=== PATIENT | female | born 2000 | race Caucasian/White ===

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

== ENCOUNTER 2023-06-07 22:27 | Observation (INO) ==
[2023-06-07] MEDS ORDERED: ONDANSETRON INJ 2 MG/ML 2 ML VIAL IV STA (22:39)
[2023-06-07] MEDS ORDERED: KETOROLAC 30 MG/ML VIAL IV STA (22:39)
[2023-06-07] MEDS ORDERED: SODIUM CHLORIDE 0.9% 1000ML 1,000 ML IV STA (22:39)
[2023-06-07 23:09] LABS: Appearance Urine Clear (Clear); Bacteria Urine Automated Negative (Negative); Bilirubin Urine Negative (Negative); Blood Urine Negative (Negative); Color Urine Yellow; Epithelial Cell Urine Auto >30 /lpf (0-5); Glucose Urine UA Negative (Negative); Ketones Urine Negative (Negative); Leukocyte Esterase Urine Trace (Negative); Nitrite Urine Negative (Negative); Protein Urine Negative (Negative); RBC Urine Automated 0-4 /hpf (0-4); Specific Gravity Urine 1.026 (1.000-1.030); Urobilinogen Urine Negative (Negative); pH Urine 5.5 (4.5-7.5)
[2023-06-07 23:13] LABS: Basophils # (auto) 0.04 K/uL (0-0.2); Basophils % (auto) 0.4 %; Eosinophils # (auto) 0.15 K/uL (0-0.50); Eosinophils % (auto) 1.4 %; Hematocrit (blood only) 38.3 % (37.0-47.0); Hemoglobin 13.1 g/dl (12.0-16.0); Immature Granulocytes # (auto) 0.03 K/uL (0.01-0.20); Immature Granulocytes % (auto) 0.3 %; Lymphocytes # (auto) 2.67 K/uL (1.2-3.4); Lymphocytes % (auto) 25.1 %; Mean Corpuscular Hemoglobin 30.3 pg (25.0-34.0); Mean Corpuscular Hgb Conc 34.2 g/dL (32.0-36.0); Mean Corpuscular Volume 88.5 fL (80.0-100.0); Mean Platelet Volume 9.8 fL (9.4-12.4); Monocytes # (auto) 0.65 K/uL (0.11-0.59); Monocytes % (auto) 6.1 %; Neutrophils # (auto) 7.11 K/uL (1.40-6.50); Neutrophils % (auto) 66.7 %; Platelet Count 223 K/uL (130-400); RDW Coefficient of Variation 11.8 % (11.5-14.5); RDW Standard Deviation 38.2 fL (36.4-46.3); Red Blood Count 4.33 M/uL (4.20-5.40); White Blood Count 10.65 K/ul (4.8-10.8)
[2023-06-07 23:33] LABS: Albumin Globulin Ratio 1.8 (0.9-2); Albumin Level 4.2 gm/dl (3.4-5.0); BUN Creatinine Ratio 13.8 (10-20); Bilirubin,Total 0.2 mg/dl (0.2-1.0); Calcium 8.9 mg/dl (8.6-10.3); Creatinine Clr Calc Pharmacy 114.5 ml/min; Est GFR (African American) 122.2 ml/min; Est GFR (Non-African American) 105.4 ml/min; Globulin 2.3 gm/dl (2.5-4.0); Potassium 3.6 mmol/L (3.5-5.1); Pregnancy Test, Serum Negative (Negative); Total Protein 6.5 gm/dl (6.0-8.3)
[2023-06-07] MEDS ORDERED: OPTIRAY 320 100ml IV ONE (23:40)
--- NOTE | 2023-06-07 23:55 | CT Scan Report ---
Exam(s): CT ABDOMEN + PELVIS With Contrast IV Amt: 93 ML OPTIRAY 320 EXAM: CT Abdomen and Pelvis With Intravenous Contrast CLINICAL HISTORY: Reason for exam: abd pain. TECHNIQUE: Axial computed tomography images of the abdomen and pelvis with intravenous contrast. CTDI is 25.47 mGy and DLP is 1229.99 mGy-cm. Automated exposure control was utilized for the study. A dose lowering technique was utilized adhering to the principles of ALARA. CONTRAST: Patient received 93 ML OPTIRAY 320 of IV contrast COMPARISON: No relevant prior studies available. FINDINGS: Lung bases: Unremarkable. No mass. No consolidation. ABDOMEN: Liver: Unremarkable. No mass. Gallbladder and bile ducts: Status post cholecystectomy. No ductal dilation. Pancreas: Unremarkable. No mass. No ductal dilation. Spleen: Unremarkable. No splenomegaly. Adrenals: Unremarkable. No mass. Kidneys and ureters: Unremarkable. No solid mass. No hydronephrosis. Stomach and bowel: Unremarkable. No obstruction. No mucosal thickening. PELVIS: Appendix: The appendix is thick-walled and distended with periappendiceal inflammation. Bladder: Unremarkable. No mass. Reproductive: Unremarkable as visualized. ABDOMEN and PELVIS: Intraperitoneal space: Unremarkable. No free air. No significant fluid collection. Bones/joints: No acute fracture. No dislocation. Soft tissues: Unremarkable. Vasculature: Unremarkable. No abdominal aortic aneurysm. Lymph nodes: Unremarkable. No enlarged lymph nodes. IMPRESSION: Findings compatible with acute appendicitis without evidence for perforation or abscess. Communications: Verify Receipt Electronically signed by: Panfilo Haney MD 06/07/23 23:54 PM
[2023-06-08] MEDS ORDERED: MoRPHine SULFATE 4 MG/ML 1 ML CARP\\VIAL IV PRN ×2 (00:09→02:13)
[2023-06-08] MEDS ORDERED: ONDANSETRON INJ 2 MG/ML 2 ML VIAL IV STA (00:09)
--- NOTE | 2023-06-08 00:16 | Emergency Department Note ---
History of Present Illness General Chief complaint: Abdominal Pain Stated complaint: ABD PAIN Time Seen by Provider: 06/07/23 22:33 History of Present Illness Maximum Pain Intensity: 4 This is a 23-year-old female presenting to the emergency department for evaluation of generalized abdominal pain for the past several days. Patient states that she has not had a regular bowel movement in a few days, and is concerned for constipation. She did go to her family doctor and was started on unknown medicine for pain. This is not helped her symptoms. The patient rates her discomfort a 4/10. No fevers or chills. No chest pain, chest tightness, shortness of breath. She did eat dinner around 8 PM. Last menstrual period was 3 weeks ago and she denies chance of . She does have a past surgical history of cholecystectomy. She does not identify aggravating or alleviating factors. Home Medications Medication Instructions Recorded Confirmed Type sucralfate 1 gram tablet (Carafate) 1 g PO BID #60 tabs 12/10/21 06/07/23 Rx lamotrigine 100 mg tablet 100 mg PO DAILY 06/07/23 06/07/23 History (Lamictal) Allergies Allergy/AdvReac Type Severity Reaction Status Date / Time amoxicillin Allergy Mild Rash Verified 06/07/23 23:21 Penicillins Allergy Mild Rash Verified 06/07/23 23:21 Past Med/Surg History Medical History Attention deficit disorder (ADD) Bipolar disorder Chronic back pain Depression Dysmenorrhea Encounter for screening for infections with predominantly sexual mode of transmission Facial cellulitis RESOLVED GERD (gastroesophageal reflux disease) History of COVID-19 DX'D 11/14/21 THRU EMPLOYED [employer] HOUSE-CONTACT WITH SISTER WHO WAS COVID [id number] AT HOME Surgical History History of esophagogastroduodenoscopy (EGD) Hx laparoscopic cholecystectomy (12/04/21) Diagnostic Laparoscopy, Laparoscopic Cholecystectomy- Bryan Maxwell, DO 12/04/2021 S/P wisdom tooth extraction Family History Family/Other Diabetes Grandmother Diabetes Denies family history of Ovarian cancer Breast cancer Colorectal cancer Uterine cancer Social History Smoking Status: Current every day smoker Tobacco Type: E-cigarettes / Vaping Cigarettes Per Day: VAPES DAILY ALL DAY; Second Hand Exposure: No; Do You Dip or Chew Tobacco: No; Hx Alcohol Use: No Hx Substance Use: Yes Non-Prescribed Medications: Marijuana Substance Use Type Other:: MARIJUANA INH 2-3 X A WEEK-NO CARD Preferred Language: Occitan Communication Ability: Effective Advertising Account Representative Required: No Beliefs That Will Affect Care: None marital status: Single Current Living Situation: Parent and Family current occupational status: employed current occupation: [employer] AT [employer] How many Children do You have: 0 Feels Safe at Home: Yes during the past year weight has: decreased > 10 lbs Assistive Devices: Glasses Review of Systems A total of 10 systems reviewed and were otherwise negative Physical Exam Vital Signs Vital Signs - 24 hr 06/07/23 22:28 06/07/23 23:09 06/07/23 23:09 Temperature 36.6 C Temperature Source Temporal Artery Scan Pulse Rate 81 Pulse Rate [Apical] 68 Pulse Rhythm Regular Pulse Strength Normal Respiratory Rate 20 20 Respiratory Effort / Characteristics Non-Labored Spontaneous Non-Labored Spontaneous Respiratory Depth Normal Normal Respiratory Pattern Regular Blood Pressure 120/72 Blood Pressure [Left Arm] 113/59 L Blood Pressure Mean 88 Blood Pressure Mean [Left Arm] 77 Blood Pressure Position Sitting Blood Pressure Position [Left Arm] Semi-fowlers Pulse Oximetry 99 100 100 Oxygen Delivery Method Room Air Room Air Room Air Sepsis Recent Fever Within 48 Hours No Sepsis New/Unexplained Change in Mental Status N/A Sepsis Action Taken by Nursing No Action Required 06/07/23 23:09 Temperature Temperature Source Pulse Rate 70 Pulse Rate [Apical] Pulse Rhythm Pulse Strength Respiratory Rate Respiratory Effort / Characteristics Respiratory Depth Respiratory Pattern Blood Pressure Blood Pressure [Left Arm] Blood Pressure Mean Blood Pressure Mean [Left Arm] Blood Pressure Position Blood Pressure Position [Left Arm] Pulse Oximetry Oxygen Delivery Method Sepsis Recent Fever Within 48 Hours Sepsis New/Unexplained Change in Mental Status Sepsis Action Taken by Nursing VITALS: Vitals are noted on the nurse's note and reviewed by myself. Vital signs stable. GENERAL: Well-developed, well-nourished, white female, who is in no acute distress and resting comfortably. Patient is cooperative with the examination. HEAD: Normocephalic atraumatic. MOUTH: Mucous membranes moist. Tonsils are not enlarged. Pharynx without erythema, blood, or exudate. Uvula midline. Airway patent. NECK: Supple without nuchal rigidity. No lymphadenopathy. No thyromegaly. Cervical spine is nontender. HEART: Regular rate and rhythm without murmurs gallops or rubs. LUNGS: Clear to auscultation bilaterally without wheezes, rales or rhonchi. No retractions or accessory muscle use. ABDOMEN: Positive normal bowel sounds x 4. Soft, nontender, without masses or o rganomegaly. No guarding or rebound tenderness. MUSCULOSKELETAL: No muscle atrophy, erythema, or edema noted. Full range of motion in all extremities. No tenderness to palpation. Normal gait. Strength 5/5 throughout. NEURO: Patient was alert and oriented to person place and time. CN II through XII grossly intact. Course Administered Medications Discontinued Medications Sodium Chloride (Nss 1000ml) 1,000 mls @ 999 mls/hr IV .Q1H1M STA Stop: 06/07/23 23:39 Last Infusion: 06/08/23 00:14 Dose: 0 mls/hr Documented By: Admin: 06/07/23 23:01 Dose: 999 mls/hr Documented By: Ioversol (Optiray 320 100ml) 100 ml IV ONCE ONE Stop: 06/07/23 23:41 Last Admin: 06/07/23 23:40 Dose: 93 ml Documented By: CHUCK Ketorolac Tromethamine (Ketorolac 30 Mg/Ml Vial) 30 mg IV NOW STA Stop: 06/07/23 22:40 Last Admin: 06/07/23 23:01 Dose: 30 mg Documented By: Ondansetron HCl (Ondansetron Inj 2 Mg/Ml 2 Ml Vial) 4 mg IV NOW STA Stop: 06/07/23 22:40 Last Admin: 06/07/23 23:01 Dose: 4 mg Documented By: Ondansetron HCl (Ondansetron Inj 2 Mg/Ml 2 Ml Vial) 4 mg IV NOW STA Stop: 06/08/23 00:10 Last Admin: 06/08/23 00:36 Dose: 4 mg Documented By: Medical Decision Making Differential Diagnosis Differential diagnosis: Etiologies such as biliary colic, cholecystitis, hepatitis, pancreatitis, cardiac disease, pancreatitis, gastritis, peptic ulcer disease, appendicitis, cystitis, diverticulitis, mesenteric ischemia, inflammatory bowel disease, il eus, bowel obstruction, testicular/adnexal torsion, aortic pathology, shingles, as well as others were considered Laboratory Data 06/07/23 22:54 06/07/23 22:54 Lab Results 06/07/23 06/07/23 06/07/23 Range/Units 22:50 22:54 22:54 WBC 10.65 (4.8-10.8) K/ul RBC 4.33 (4.20-5.40) M/uL Hgb 13.1 (12.0-16.0) g/dl Hct 38.3 (37.0-47.0) % MCV 88.5 (80.0-100.0) fL MCH 30.3 (25.0-34.0) pg MCHC 34.2 (32.0-36.0) g/dL RDW Std Deviation 38.2 (36.4-46.3) fL RDW Coeff of Ras 11.8 (11.5-14.5) % Plt Count 223 (130-400) K/uL MPV 9.8 (9.4-12.4) fL Immature Gran % (Auto) 0.3 % Neut % (Auto) 66.7 % Lymph % (Auto) 25.1 % [place] % (Auto) 6.1 % Eos % (Auto) 1.4 % Baso % (Auto) 0.4 % Neut # (Auto) 7.11 H (1.40-6.50) K/uL Lymph # (Auto) 2.67 (1.2-3.4) K/uL [place] # (Auto) 0.65 H (0.11-0.59) K/uL Eos # (Auto) 0.15 (0-0.50) K/uL Baso # (Auto) 0.04 (0-0.2) K/uL Immature Gran # (Auto) 0.03 (0.01-0.20) K/uL Sodium 137 (136-145) mmol/L Potassium 3.6 (3.5-5.1) mmol/L Chloride 109 H (98-107) mmol/L Carbon Dioxide 23 (21-32) mmol/L Anion Gap 5 (3-11) BUN 11 (6-23) mg/dl Creatinine 0.80 (0.6-1.2) mg/dl Est Cr Clr Drug Dosing 114.5 ml/min Est GFR ( Amer) 122.2 ml/min Est GFR (Non-Af Amer) 105.4 ml/min BUN/Creatinine Ratio 13.8 (10-20) Glucose 86 (70-99(Fasting)) mg/dl Calcium 8.9 (8.6-10.3) mg/dl Total Bilirubin 0.2 (0.2-1.0) mg/dl AST 11 L (13-39) U/L ALT 6 L (7-52) U/L Alkaline Phosphatase 56 (34-104) U/L Total Protein 6.5 (6.0-8.3) gm/dl Albumin 4.2 (3.4-5.0) gm/dl Globulin 2.3 L (2.5-4.0) gm/dl Albumin/Globulin Ratio 1.8 (0.9-2) Lipase 12 (11-82) U/L HCG, Qual (Negative) Urine Color Yellow Urine Appearance Clear (Clear) Urine pH 5.5 (4.5-7.5) Ur Specific [place] 1.026 (1.000-1.030) Urine Protein Negative (Negative) Urine Glucose (UA) Negative (Negative) Urine Ketones Negative (Negative) Urine Blood Negative (Negative) Urine Nitrite Negative (Negative) Urine Bilirubin Negative (Negative) Urine Urobilinogen Negative (Negative) Ur Leukocyte Esterase Trace H (Negative) Urine WBC (Auto) 1-5 (0-5) /hpf Urine RBC (Auto) 0-4 (0-4) /hpf U Hyaline Cast (Auto) 1-5 (0-5) /lpf U Epithel Cells (Auto) >30 H (0-5) /lpf Urine Bacteria (Auto) Negative (Negative) 06/07/23 Range/Units 22:54 WBC (4.8-10.8) K/ul RBC (4.20-5.40) M/uL Hgb (12.0-16.0) g/dl Hct (37.0-47.0) % MCV (80.0-100.0) fL MCH (25.0-34.0) pg MCHC (32.0-36.0) g/dL RDW Std Deviation (36.4-46.3) fL RDW Coeff of Ras (11.5-14.5) % Plt Count (130-400) K/uL MPV (9.4-12.4) fL Immature Gran % (Auto) % Neut % (Auto) % Lymph % (Auto) % [place] % (Auto) % Eos % (Auto) % Baso % (Auto) % Neut # (Auto) (1.40-6.50) K/uL Lymph # (Auto) (1.2-3.4) K/uL [place] # (Auto) (0.11-0.59) K/uL Eos # (Auto) (0-0.50) K/uL Baso # (Auto) (0-0.2) K/uL Immature Gran # (Auto) (0.01-0.20) K/uL Sodium (136-145) mmol/L Potassium (3.5-5.1) mmol/L Chloride (98-107) mmol/L Carbon Dioxide (21-32) mmol/L Anion Gap (3-11) BUN (6-23) mg/dl Creatinine (0.6-1.2) mg/dl Est Cr Clr Drug Dosing ml/min Est GFR ( Amer) ml/min Est GFR (Non-Af Amer) ml/min BUN/Creatinine Ratio (10-20) Glucose (70-99(Fasting)) mg/dl Calcium (8.6-10.3) mg/dl Total Bilirubin (0.2-1.0) mg/dl AST (13-39) U/L ALT (7-52) U/L Alkaline Phosphatase (34-104) U/L Total Protein (6.0-8.3) gm/dl Albumin (3.4-5.0) gm/dl Globulin (2.5-4.0) gm/dl Albumin/Globulin Ratio (0.9-2) Lipase (11-82) U/L HCG, Qual Negative (Negative) Urine Color Urine Appearance (Clear) Urine pH (4.5-7.5) Ur Specific [place] (1.000-1.030) Urine Protein (Negative) Urine Glucose (UA) (Negative) Urine Ketones (Negative) Urine Blood (Negative) Urine Nitrite (Negative) Urine Bilirubin (Negative) Urine Urobilinogen (Negative) Ur Leukocyte Esterase (Negative) Urine WBC (Auto) (0-5) /hpf Urine RBC (Auto) (0-4) /hpf U Hyaline Cast (Auto) (0-5) /lpf U Epithel Cells (Auto) (0-5) /lpf Urine Bacteria (Auto) (Negative) Imaging Data Radiologist's Impression: Abdomen/Pelvis CT 06/07/23 22:39 CR Exam(s): CT ABDOMEN + PELVIS With Contrast IV Amt: 93 ML OPTIRAY 320 EXAM: CT Abdomen and Pelvis With Intravenous Contrast CLINICAL HISTORY: Reason for exam: abd pain. TECHNIQUE: Axial computed tomography images of the abdomen and pelvis with intravenous contrast. CTDI is 25.47 mGy and DLP is 1229.99 mGy-cm. Automated exposure control was utilized for the study. A dose lowering technique was utilized adhering to the principles of ALARA. CONTRAST: Patient received 93 ML OPTIRAY 320 of IV contrast COMPARISON: No relevant prior studies available. FINDINGS: Lung bases: Unremarkable. No mass. No consolidation. ABDOMEN: Liver: Unremarkable. No mass. Gallbladder and bile ducts: Status post cholecystectomy. No ductal dilation. Pancreas: Unremarkable. No mass. No ductal dilation. Spleen: Unremarkable. No splenomegaly. Adrenals: Unremarkable. No mass. Kidneys and ureters: Unremarkable. No solid mass. No hydronephrosis. Stomach and bowel: Unremarkable. No obstruction. No mucosal thickening. PELVIS: Appendix: The appendix is thick-walled and distended with periappendiceal inflammation. Bladder: Unremarkable. No mass. Reproductive: Unremarkable as visualized. ABDOMEN and PELVIS: Intraperitoneal space: Unremarkable. No free air. No significant fluid collection. Bones/joints: No acute fracture. No dislocation. Soft tissues: Unremarkable. Vasculature: Unremarkable. No abdominal aortic aneurysm. Lymph nodes: Unremarkable. No enlarged lymph nodes. IMPRESSION: Findings compatible with acute appendicitis without evidence for perforation or abscess. Communications: Verify Receipt Electronically signed by: Panfilo Hanye MD 06/07/23 23:54 PM [facility] Narrative Physical exam and history were performed. Nursing notes, EMR, and Medication List were personally reviewed. No social concerns were identified as barriers to patients care. Patient appears to have abdominal discomfort bringing her to the ER. Physical exam is unremarkable and vital signs are stable. IV access was established and labs were obtained. Patient was hydrated and medicated as above. Due to length of symptoms and nonspecific exam she was sent to CT scan for imaging of her belly. Patient's blood work is as above and was reviewed. She does not have a significantly elevated white blood cell count, gross anemia, bandemia, or significant electrolyte imbalance. Lipase and transaminases are not diagnostic. Urine is without distinct evidence of infection. CT scan was reviewed by myself and radiology, and does show acute appendicitis, which would likely be the cause of the patient's symptoms. Case was discussed with the on-call surgeon, Dr. Bower, who will evaluate patient. Please see Dr. Bower's dictation for further patient course, plan, and disposition. The chart was completed utilizing [employer] Speech Voice Recognition Software. Grammatical errors, random word insertions, pronoun errors, and incomplete sentences are an occasional consequence of this system due to software limitations, ambient noise, and hardware issues. Any formal questions or concerns about the content, text, or information contained within the body of this dictation should be directly addressed to the provider for clarification. . Impression & Plan Acute appendicitis Discharge Plan Visit Data Chief Complaint: Abdominal Pain Stated Complaint: ABD PAIN ED Provider: [facility] Midlevel Provider: Alexander Delgado Discharge Problem: Acute appendicitis Forms Stand Alone Forms: [employer] Prescriptions Prescriptions: No Action sucralfate [Carafate] 1 gram tablet 1 g PO BID Qty: 60 0RF lamotrigine [Lamictal] 100 mg Tablet 100 mg PO DAILY Referrals Referrals: Ronald Palumbo Jr, DO [Physician] -
[2023-06-08] MEDS ORDERED: ONDANSETRON INJ 2 MG/ML 2 ML VIAL IV PRN (02:13)
[2023-06-08] MEDS ORDERED: MoRPHine SULFATE 2 MG/ML CARP IV PRN (02:13)
[2023-06-08] MEDS: LACTATED RINGER'S 1,000 ML IV SCH ×3 (02:36→17:39)
[2023-06-08] MEDS ORDERED: levoFLOXacin/D5W 750 MG/150 ML BAG IV SCH (03:00)
--- NOTE | 2023-06-08 09:31 | Anesthesiology Consultation ---
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 History Surgery Operation Date: 06/08/23 09:30 Proposed Procedures p Laparoscopic Appendectomy - Katty Abbott MD Height/Weight Height: 5 ft 3 in Weight: 84.5 kg Allergies Allergy/AdvReac Type Severity Reaction Status Date / Time amoxicillin Allergy Mild Rash Verified 06/07/23 23:21 Penicillins Allergy Mild Rash Verified 06/07/23 23:21 Medications Home Medications Medication Instructions Recorded Confirmed Last Taken sucralfate 1 gram tablet (Carafate) 1 g PO BID #60 tabs 12/10/21 06/07/23 Unknown lamotrigine 100 mg tablet 100 mg PO DAILY 06/07/23 06/07/23 Unknown (Lamictal) Active Medications Generic Name Dose Route Start Last Admin Trade Name Freq PRN Reason Stop Dose Admin Lactated Ringer's 1,000 mls @ 100 mls/hr 06/08/23 02:13 06/08/23 02:36 Lr IV 07/08/23 02:12 100 mls/hr .Q10H DREW Administration Levofloxacin/Dextrose 750 mg in 150 mls @ 100 mls/hr 06/08/23 03:00 06/08/23 04:45 Levaquin/D5w IV 06/12/23 02:59 Infused Q24H DREW Infusion Protocol Past Medical History Medical History Attention deficit disorder (ADD) Bipolar disorder Chronic back pain Depression Dysmenorrhea Encounter for screening for infections with predominantly sexual mode of transmission Facial cellulitis RESOLVED GERD (gastroesophageal reflux disease) History of COVID-19 DX'D 11/14/21 THRU EMPLOYED [employer] HOUSE-CONTACT WITH SISTER WHO WAS COVID [id number] AT HOME Past Family History Family History Family/Other Diabetes Grandmother Diabetes Denies family history of Ovarian cancer Breast cancer Colorectal cancer Uterine cancer Past Surgical History Surgical History History of esophagogastroduodenoscopy (EGD) Hx laparoscopic cholecystectomy (12/04/21) Diagnostic Laparoscopy, Laparoscopic Cholecystectomy- Bryan Maxwell DO 12/04/2021 S/P wisdom tooth extraction Social History Smoking Status: Current every day smoker tobacco type: e-cigarettes Smoking cigarettes per day: VAPES DAILY ALL DAY Do You Dip or Chew Tobacco: No Hx Alcohol Use: No Hx Substance Use: No substance use type: does not use Substance Use Type Other:: MARIJUANA INH 2-3 X A WEEK-NO CARD Physical Exam Vital Signs Last Vital Signs Temp 98.4 F 06/08/23 07:42 Pulse 77 06/08/23 07:42 Resp 14 06/08/23 07:42 BP 101/57 L 06/08/23 07:42 Pulse Ox 98 06/08/23 07:42 O2 Del Method Room Air 06/08/23 07:42 Testing Laboratory Results 06/07/23 22:54 06/07/23 22:54 Urine Color Yellow 06/07/23 22:50 Urine Appearance Clear (Clear) 06/07/23 22:50 Urine pH 5.5 (4.5-7.5) 06/07/23 22:50 Ur Specific [place] 1.026 (1.000-1.030) 06/07/23 22:50 Urine Protein Negative (Negative) 06/07/23 22:50 Urine Glucose (UA) Negative (Negative) 06/07/23 22:50 Urine Ketones Negative (Negative) 06/07/23 22:50 Urine Nitrite Negative (Negative) 06/07/23 22:50 Ur Leukocyte Esterase Trace (Negative) H 06/07/23 22:50 Urine WBC (Auto) 1-5 /hpf (0-5) 06/07/23 22:50 Urine RBC (Auto) 0-4 /hpf (0-4) 06/07/23 22:50 U Hyaline Cast (Auto) 1-5 /lpf (0-5) 06/07/23 22:50 U Epithel Cells (Auto) >30 /lpf (0-5) H 06/07/23 22:50 Urine Bacteria (Auto) Negative (Negative) 06/07/23 22:50
--- NOTE | 2023-06-08 10:12 | History & Physical Report ---
Date of Service June 08, 2023 Assessment & Plan (1) Acute appendicitis: Plan 23 year-old female with history of abdominal pain more generalized last week which was off and on and associated with constipation presented to ED last evening due to severe more consistent pain in the right lower abdomen with associated nausea and diarrhea that began yesterday. CT scan showing acute appendicitis without perforation or abscess. No leukocytosis, afebrile. Plan: Discussed imaging findings with patient and exam findings consistent with acute appendicitis. Do not feel her generalized pain last week was necessarily secondary to acute appendicitis. Discussed option of laparoscopic appendectomy and associated risks and expected recovery. Will plan to proceed with laparoscopic appendectomy today at earliest convenience. Informed consent obtained by Dr. Abbott. Keep NPO Pain management as needed Dr. Abbott has seen patient and obtained informed consent. I reviewed pt's H/P, labs and CT scan with pt. I recommend to do laparoscopic appendectomy, possible open, D/W benefits, risks and alternatives of the surgery, the risk may include but not limited such as a bleeding, infection, abscess, injury or other organs, incisional hernia, and bowel obstruction. patient understood. she signed informed consent. I answered all questions. pre-op IV antibiotic. Admission and Anticipated Discharge Date Admission Date: June 08, 2023 History of Present Illness Chief Complaint: abdominal pain Primary Care Provider: Shauna Helton MD Santos is a 23 year-old female who presented to emergency room last evening with complaint of abdominal pain that initially began last Wednesday/ however she felt this was due to constipation. Pain at that time was off and on and more of a pressure sensation. States pain became more consistent, and stabbing pain yesterday with associated nausea and diarrhea. No vomiting. No fevers or chills. No prior history of similar pain. Took Miralax and gas x yesterday morning which did not alleviate her pain. Had some diarrhea last evening. Had laparoscopic cholecystectomy in 2021, no issues. ER work-up included labs which showed no leukocytosis however bandemia of 7.11. CT scan of abdomen/pelvis with IV contrast showing thick walled appendix with periappendiceal inflammation consitent with acute appendicitis. She currently states she is feeling slightly better but pain about the same. No nausea or vomiting overnight. No fever or chills. Allergies Allergy/AdvReac Type Severity Reaction Status Date / Time amoxicillin Allergy Mild Rash Verified 06/07/23 23:21 Penicillins Allergy Mild Rash Verified 06/07/23 23:21 Home Medications Medication Instructions Recorded Confirmed Type sucralfate 1 gram tablet (Carafate) 1 g PO BID #60 tabs 12/10/21 06/07/23 Rx lamotrigine 100 mg tablet 100 mg PO DAILY 06/07/23 06/07/23 History (Lamictal) Past Med/Surg History Medical History Attention deficit disorder (ADD) Bipolar disorder Chronic back pain Depression Dysmenorrhea Encounter for screening for infections with predominantly sexual mode of transmission Facial cellulitis RESOLVED GERD (gastroesophageal reflux disease) History of COVID-19 DX'D 11/14/21 THRU EMPLOYED [employer] [place]-CONTACT WITH SISTER WHO WAS COVID [id number] AT HOME Surgical History History of esophagogastroduodenoscopy (EGD) Hx laparoscopic cholecystectomy (12/04/21) Diagnostic Laparoscopy, Laparoscopic Cholecystectomy- Bryan Maxwell DO 12/04/2021 S/P wisdom tooth extraction Family History Family/Other Diabetes Grandmother Diabetes Denies family history of Ovarian cancer Breast cancer Colorectal cancer Uterine cancer Social History Smoking Status: Current every day smoker Tobacco Type: E-cigarettes / Vaping Cigarettes Per Day: VAPES DAILY ALL DAY; Second Hand Exposure: No; Do You Dip or Chew Tobacco: No; Tobacco Cessation Education Requested by Patient: No Hx Alcohol Use: No Hx Substance Use: No Preferred Language: Yakut Communication Ability: Effective Physician Practice Market Manager Required: No Beliefs That Will Affect Care: None marital status: Single Current Living Situation: Significant Other current occupational status: employed 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 [employer] How many Children do You have: 0 Other Information That Helps Us Care for You: No Feels Safe at Home: Yes Safety Concerns: Feels Safe At This Time during the past year weight has: decreased > 10 lbs Assistive Devices: Glasses Review of Systems Review of Systems: All systems reviewed & are unremarkable except as noted in HPI & below Physical Exam Constitutional: WD/WN, vitals as above cooperative and comfortable; no acute distress and not ill appearing Respiratory: normal respiratory effort, lungs clear to auscultation Cardiovascular: RRR, no murmur, no edema Gastrointestinal (Abdomen): Inspection/Auscultation: abdomen normal to inspection and + abdominal surgical scar (lap shad scars); abdomen not distended and + abnormal bowel sounds Percussion/Palpation: + abdomen tender (generalized however there is pinpoint RLQ tenderness with positive Mcburney) and abdomen soft; no guarding, abdomen not rigid and abdomen not firm Skin: no rashes, warm and dry Psychiatric: A+Ox3, euthymic affect Results & Data Results & Data Vital Signs (Past 12 Hours) Vital Signs Temp Pulse Pulse Pulse Resp BP BP 06/08/23 07:42 36.9 C 77 14 101/57 L 06/08/23 02:15 36.5 C 79 16 116/81 06/08/23 01:53 06/08/23 00:30 66 17 06/08/23 00:30 110/67 06/07/23 23:30 65 22 06/07/23 23:30 117/63 06/07/23 23:09 70 06/07/23 23:09 06/07/23 23:09 68 20 113/59 L 06/07/23 22:28 36.6 C 81 20 120/72 Pulse Ox O2 Del Method 06/08/23 07:42 98 Room Air 06/08/23 02:15 99 Room Air 06/08/23 01:53 Room Air 06/08/23 00:30 100 Room Air 06/08/23 00:30 06/07/23 23:30 100 Room Air 06/07/23 23:30 06/07/23 23:09 06/07/23 23:09 100 Room Air 06/07/23 23:09 100 Room Air 06/07/23 22:28 99 Room Air Laboratory Results 06/08/23 06/07/23 06/07/23 Range/Units 00:40 22:54 22:54 WBC (4.8-10.8) K/ul RBC (4.20-5.40) M/uL Hgb (12.0-16.0) g/dl Hct (37.0-47.0) % MCV (80.0-100.0) fL MCH (25.0-34.0) pg MCHC (32.0-36.0) g/dL RDW Std Deviation (36.4-46.3) fL RDW Coeff of Ras (11.5-14.5) % Plt Count (130-400) K/uL MPV (9.4-12.4) fL Immature Gran % (Auto) % Neut % (Auto) % Lymph % (Auto) % [place] % (Auto) % Eos % (Auto) % Baso % (Auto) % Neut # (Auto) (1.40-6.50) K/uL Lymph # (Auto) (1.2-3.4) K/uL [place] # (Auto) (0.11-0.59) K/uL Eos # (Auto) (0-0.50) K/uL Baso # (Auto) (0-0.2) K/uL Immature Gran # (Auto) (0.01-0.20) K/uL Sodium 137 (136-145) mmol/L Potassium 3.6 (3.5-5.1) mmol/L Chloride 109 H (98-107) mmol/L Carbon Dioxide 23 (21-32) mmol/L Anion Gap 5 (3-11) BUN 11 (6-23) mg/dl Creatinine 0.80 (0.6-1.2) mg/dl Est Cr Clr Drug Dosing 114.5 ml/min Est GFR ( Amer) 122.2 ml/min Est GFR (Non-Af Amer) 105.4 ml/min BUN/Creatinine Ratio 13.8 (10-20) Glucose 86 (70-99(Fasting)) mg/dl Calcium 8.9 (8.6-10.3) mg/dl Total Bilirubin 0.2 (0.2-1.0) mg/dl AST 11 L (13-39) U/L ALT 6 L (7-52) U/L Alkaline Phosphatase 56 (34-104) U/L Total Protein 6.5 (6.0-8.3) gm/dl Albumin 4.2 (3.4-5.0) gm/dl Globulin 2.3 L (2.5-4.0) gm/dl Albumin/Globulin Ratio 1.8 (0.9-2) Lipase 12 (11-82) U/L HCG, Qual Negative (Negative) Urine Color Urine Appearance (Clear) Urine pH (4.5-7.5) Ur Specific [place] (1.000-1.030) Urine Protein (Negative) Urine Glucose (UA) (Negative) Urine Ketones (Negative) Urine Blood (Negative) Urine Nitrite (Negative) Urine Bilirubin (Negative) Urine Urobilinogen (Negative) Ur Leukocyte Esterase (Negative) Urine WBC (Auto) (0-5) /hpf Urine RBC (Auto) (0-4) /hpf U Hyaline Cast (Auto) (0-5) /lpf U Epithel Cells (Auto) (0-5) /lpf Urine Bacteria (Auto) (Negative) SARS-CoV-2, RNA, NAAT NEGATIVE (NEGATIVE) 06/07/23 06/07/23 Range/Units 22:54 22:50 WBC 10.65 (4.8-10.8) K/ul RBC 4.33 (4.20-5.40) M/uL Hgb 13.1 (12.0-16.0) g/dl Hct 38.3 (37.0-47.0) % MCV 88.5 (80.0-100.0) fL MCH 30.3 (25.0-34.0) pg MCHC 34.2 (32.0-36.0) g/dL RDW Std Deviation 38.2 (36.4-46.3) fL RDW Coeff of Ras 11.8 (11.5-14.5) % Plt Count 223 (130-400) K/uL MPV 9.8 (9.4-12.4) fL Immature Gran % (Auto) 0.3 % Neut % (Auto) 66.7 % Lymph % (Auto) 25.1 % [place] % (Auto) 6.1 % Eos % (Auto) 1.4 % Baso % (Auto) 0.4 % Neut # (Auto) 7.11 H (1.40-6.50) K/uL Lymph # (Auto) 2.67 (1.2-3.4) K/uL [place] # (Auto) 0.65 H (0.11-0.59) K/uL Eos # (Auto) 0.15 (0-0.50) K/uL Baso # (Auto) 0.04 (0-0.2) K/uL Immature Gran # (Auto) 0.03 (0.01-0.20) K/uL Sodium (136-145) mmol/L Potassium (3.5-5.1) mmol/L Chloride (98-107) mmol/L Carbon Dioxide (21-32) mmol/L Anion Gap (3-11) BUN (6-23) mg/dl Creatinine (0.6-1.2) mg/dl Est Cr Clr Drug Dosing ml/min Est GFR ( Amer) ml/min Est GFR (Non-Af Amer) ml/min BUN/Creatinine Ratio (10-20) Glucose (70-99(Fasting)) mg/dl Calcium (8.6-10.3) mg/dl Total Bilirubin (0.2-1.0) mg/dl AST (13-39) U/L ALT (7-52) U/L Alkaline Phosphatase (34-104) U/L Total Protein (6.0-8.3) gm/dl Albumin (3.4-5.0) gm/dl Globulin (2.5-4.0) gm/dl Albumin/Globulin Ratio (0.9-2) Lipase (11-82) U/L HCG, Qual (Negative) Urine Color Yellow Urine Appearance Clear (Clear) Urine pH 5.5 (4.5-7.5) Ur Specific [place] 1.026 (1.000-1.030) Urine Protein Negative (Negative) Urine Glucose (UA) Negative (Negative) Urine Ketones Negative (Negative) Urine Blood Negative (Negative) Urine Nitrite Negative (Negative) Urine Bilirubin Negative (Negative) Urine Urobilinogen Negative (Negative) Ur Leukocyte Esterase Trace H (Negative) Urine WBC (Auto) 1-5 (0-5) /hpf Urine RBC (Auto) 0-4 (0-4) /hpf U Hyaline Cast (Auto) 1-5 (0-5) /lpf U Epithel Cells (Auto) >30 H (0-5) /lpf Urine Bacteria (Auto) Negative (Negative) SARS-CoV-2, RNA, NAAT (NEGATIVE) Diagnostic Findings DDENDUM: 06/08/23 00:13 Verify Receipt Verified receipt with PRASHANTH Barker for Dr. Delgado on 06/08 00:13 (-04:00) Electronically signed by: Panfilo Haney MD Electronically signed by: Panfilo Haney MD 06/07/23 23:54 PM ADDENDUM END Exam(s): CT ABDOMEN + PELVIS With Contrast IV Amt: 93 ML OPTIRAY 320 EXAM: CT Abdomen and Pelvis With Intravenous Contrast CLINICAL HISTORY: Reason for exam: abd pain. TECHNIQUE: Axial computed tomography images of the abdomen and pelvis with intravenous contrast. CTDI is 25.47 mGy and DLP is 1229.99 mGy-cm. Automated exposure control was utilized for the study. A dose lowering technique was utilized adhering to the principles of ALARA. CONTRAST: Patient received 93 ML OPTIRAY 320 of IV contrast COMPARISON: No relevant prior studies available. FINDINGS: Lung bases: Unremarkable. No mass. No consolidation. ABDOMEN: Liver: Unremarkable. No mass. Gallbladder and bile ducts: Status post cholecystectomy. No ductal dilation. Pancreas: Unremarkable. No mass. No ductal dilation. Spleen: Unremarkable. No splenomegaly. Adrenals: Unremarkable. No mass. Kidneys and ureters: Unremarkable. No solid mass. No hydronephrosis. Stomach and bowel: Unremarkable. No obstruction. No mucosal thickening. PELVIS: Appendix: The appendix is thick-walled and distended with periappendiceal inflammation. Bladder: Unremarkable. No mass. Reproductive: Unremarkable as visualized. ABDOMEN and PELVIS: Intraperitoneal space: Unremarkable. No free air. No significant fluid collection. Bones/joints: No acute fracture. No dislocation. Soft tissues: Unremarkable. Vasculature: Unremarkable. No abdominal aortic aneurysm. Lymph nodes: Unremarkable. No enlarged lymph nodes. IMPRESSION: Findings compatible with acute appendicitis without evidence for perforation or abscess. Code Status & VTE Plan VTE Prophylaxis Plan VTE Prophylaxis will be ordered: Yes
--- NOTE | 2023-06-08 10:29 | History & Physical Bridge Note ---
Date of Service June 08, 2023 History & Physical Bridge Note I have examined the patient, reviewed the History & Physical and in the interval since the performance of the History & Physical I have noted the following changes of clinical significance: no changes noted
[2023-06-08] MEDS ORDERED: metroNIDAZOLE 500 MG/100 ML BAG IV STA (10:35)
[2023-06-08] MEDS ORDERED: PROMETHAZINE HCL 6.25 MG in SODIUM CHLORIDE 0.9% 50 ML IV PRN (11:56)
[2023-06-08] MEDS ORDERED: KETOROLAC 30 MG/ML VIAL IV PRN (11:56)
[2023-06-08] MEDS ORDERED: ATROPINE SULFATE 0.1 MG/ML 10ML SYR IV PRN (11:56)
[2023-06-08] MEDS ORDERED: fentaNYL citrate PF 100 MCG/2 ML VIAL IV PRN (11:56)
[2023-06-08] MEDS ORDERED: DEXAMETHASONE SOD INJ 4 MG/ML VIAL ONE (12:26)
[2023-06-08] MEDS ORDERED: PROPOFOL IV EMULSION 10 MG/ML 20 ML VIAL IV ONE (12:26)
[2023-06-08] MEDS ORDERED: LIDOCAINE 2% 2 ML VIAL/AMP(20MG/ML) INFIL ONE (12:26)
[2023-06-08] MEDS ORDERED: ONDANSETRON INJ 2 MG/ML 2 ML VIAL ONE (12:26)
[2023-06-08] MEDS ORDERED: ROCURONIUM BROMIDE 10 MG/ML 5 ML VIAL IV ONE ×2 (12:26→13:30)
[2023-06-08] MEDS ORDERED: MIDAZOLAM HCL 1 MG/ML 2ML VIAL ONE (12:27)
[2023-06-08] MEDS ORDERED: fentaNYL citrate PF 100 MCG/2 ML VIAL ONE ×2 (12:27→12:59)
[2023-06-08] MEDS ORDERED: LIDOCAINE 1% LOCAL 20 ML VIAL ONE (12:32)
[2023-06-08] MEDS ORDERED: BUPIVACAINE 0.5 % 5 MG/1 ML MPF 30ML VIAL ONE (12:32)
[2023-06-08] MEDS ORDERED: BACITRACIN OINT 14 GM TUBE ONE (12:32)
[2023-06-08] MEDS ORDERED: KETOROLAC 30 MG/ML VIAL ONE (13:10)
[2023-06-08] MEDS ORDERED: GLYCOPYRROLATE 0.2 MG/ML VIAL ONE (13:20)
[2023-06-08] MEDS ORDERED: NEOSTIGMINE METHYLSULFATE 1 MG/ML 10ML VIAL ONE (13:20)
--- NOTE | 2023-06-08 13:31 | Post Operative Brief Note ---
Immediate Post Op Note v1 Date of Surgery June 08, 2023 Pre & Post Diagnosis Operation Date: 06/08/23 09:30 pre-op diagnosis: acute appendicitis, post-op diagnosis: acute appendicitis, I identified the patient and participated in the time-out.: Yes Procedure Operation Date: 06/08/23 09:30 laparoscopic appendectomy Surgeon Katty Abbott MD Data Center Architect BRYNN [place] Estimated Blood Loss 10 Findings Consistent with Post-Op Diagnosis acute appendicitis Fluids 1100ml Specimens appendix Anesthesia Type General Complications none Disposition Accompanied Patient To Recovery: Yes
--- NOTE | 2023-06-08 14:07 | Anesthesiology Progress Note ---
Date of Service June 08, 2023 Anesthesia Post Procedure Vital Signs Vital Signs: Temp Pulse Pulse Pulse Resp BP BP 06/08/23 14:05 72 20 111/55 L 06/08/23 13:55 76 17 112/55 L 06/08/23 13:49 36.5 C 85 12 108/62 06/08/23 11:04 37.1 C 71 18 129/64 06/08/23 07:42 36.9 C 77 14 101/57 L 06/08/23 02:15 36.5 C 79 16 116/81 06/08/23 01:53 06/08/23 00:30 66 17 06/08/23 00:30 110/67 06/07/23 23:30 65 22 06/07/23 23:30 117/63 06/07/23 23:09 70 06/07/23 23:09 06/07/23 23:09 68 20 113/59 L 06/07/23 22:28 36.6 C 81 20 120/72 Pulse Ox O2 Del Method O2 Flow Rate 06/08/23 14:05 100 Oxymask 1 06/08/23 13:55 99 Oxymask 3 06/08/23 13:49 95 Oxymask 5 06/08/23 11:04 100 Room Air 06/08/23 07:42 98 Room Air 06/08/23 02:15 99 Room Air 06/08/23 01:53 Room Air 06/08/23 00:30 100 Room Air 06/08/23 00:30 06/07/23 23:30 100 Room Air 06/07/23 23:30 06/07/23 23:09 06/07/23 23:09 100 Room Air 06/07/23 23:09 100 Room Air 06/07/23 22:28 99 Room Air Pain Intensity Abdomen: Pain Intensity: 0 Transfer of Care Handoff Completed per policy Notes Mental Status: alert / awake / arousable Patient Amnestic to Procedure: Yes Nausea / Vomiting: adequately controlled Pain: adequately controlled Airway Patency, RR, SpO2: stable & adequate BP & HR: stable & adequate Hydration State: stable & adequate Anesthetic Complications: no major complications apparent
[2023-06-08] MEDS ORDERED: ACETAMINOPHEN 325 MG TAB PO PRN (14:43)
[2023-06-08] MEDS ORDERED: oxyCODONE/ACETAMINOPHEN 5mg/325mg TAB PO PRN (14:43)
--- NOTE | 2023-06-08 15:09 | Operative Report ---
Post Operative Report Pre & Post Diagnosis Operation Date: 06/08/23 09:30 Pre-Op Diagnosis: ACUTE APPENDICITIS Post-Op Diagnosis: ACUTE APPENDICITIS I identified the patient and participated in the time-out.: Yes Procedure Operation Date: 06/08/23 09:30 Actual Procedures p Laparoscopic Appendectomy(Not Applicable) - Katty Abbott MD Surgeon Katty Abbott MD Pin Drafter BRYNN [place] Estimated Blood Loss 10 Findings Consistent with Post-Op Diagnosis acute appendicitis Fluids 1100ml Specimens appendix Complications none Indications Patient is a 23 years old female was admitted to the hospital for acute a ppendicitis. I recommend to do a laparoscopy appendectomy possible open. I did talk to patient about benefits, risks and alternatives of the procedure, risks may include but not limited to such as bleeding, infection, abscess, injury or other organs, incisional hernia, and bowel obstruction patient understood, he signed informed consent. I answered all questions. Description of Procedure After identified patient to verify procedure, we brought patient to the OR and put the patient on the supine position on the OR table. Patient received a SCD on bilateral legs to prevent DVT. Patient received 500mg flagyl and 750 mglevaquin IV for prophylactic antibiotic. Patient received general anesthesia without difficulty. The abdomen was propped and dropped in routine fashion. After timeout, I injections of local anesthesia by using 1% lidocaine mixed with 0.5% Marcaine around umbilical area. Make a small transverse incision just a florence the umbilical. Dissection subcutaneous layer reaches the fascial layer open peritoneal layer in the direct region. Inserted a Acevedo trocar in contact to CO2 to create pneumoperitoneum for low rate is a 6 L/min pressure no more than 14 mmHg. Once we get a nice pneumoperitoneum we put the camera in and look around the abdomen. Showing acute appendicitis, no perforation. Normal finding on the small bowel large bowel. The put another two 5 mm trocar on the left lower quadrant area. We used a harmonic to take down the appendiceal. Once identified the base of the appendix. The use 45 mm Endo DARRICK staple transection of the base of appendix. Recheck at the staple line intact no active bleeding. Remove appendix through the patch back. There is a very inserted Acevedo trocar and connected to CO2 to create pneumoperitoneum again look around the abdomen, staple line intact no leak no active bleeding, then we removed all trocars under direct vision no active bleeding from trocar site, pneumoperitoneum was released. Close umbilical incision fascia layer by using 0 Vicryl [id number] x2 closed subcutaneous layer with 2-0 Vicryl interrupted, close skin by using 4-0 Vicryl continuous running close another two 5-minute trocar site the skin only by use of 4-0 Vicryl and put dressing on, the patient tolerated procedure well. all instrument needle sponge count correct x2 in the case. patient was transferred to recovery room in stable condition. the specimen sent to pathology. After procedure I did talk to patient about the OR finding procedure we did. patient understood. the first line production supervisor Kita is necessary for this procedure however always hold the camera, retraction and exposure. thank you I attest to the content of the Intraoperative Record and any orders documented therein. Any exceptions are noted below. I attest to the content of the Intraoperative Record and any orders documented therein. Any exceptions are noted below.
[2023-06-08] MEDS: CIPROFLOXACIN / D5W 400 MG/200 ML BAG IV SCH (17:38)
[2023-06-08] MEDS: metroNIDAZOLE 500 MG/100 ML BAG IV SCH (20:50)
[2023-06-09] MEDS: LACTATED RINGER'S 1,000 ML IV SCH (02:49)
[2023-06-09] MEDS: metroNIDAZOLE 500 MG/100 ML BAG IV SCH ×2 (05:11→11:37)
[2023-06-09] MEDS: CIPROFLOXACIN / D5W 400 MG/200 ML BAG IV SCH (05:11)
[2023-06-09 06:53] LABS: Basophils # (auto) 0.01 K/uL (0-0.2); Basophils % (auto) 0.1 %; Eosinophils # (auto) 0.01 K/uL (0-0.50); Eosinophils % (auto) 0.1 %; Hematocrit (blood only) 33.4 % (37.0-47.0); Hemoglobin 11.8 g/dl (12.0-16.0); Immature Granulocytes # (auto) 0.06 K/uL (0.01-0.20); Immature Granulocytes % (auto) 0.5 %; Lymphocytes # (auto) 1.08 K/uL (1.2-3.4); Lymphocytes % (auto) 8.3 %; Mean Corpuscular Hemoglobin 30.5 pg (25.0-34.0); Mean Corpuscular Hgb Conc 35.3 g/dL (32.0-36.0); Mean Corpuscular Volume 86.3 fL (80.0-100.0); Mean Platelet Volume 10.3 fL (9.4-12.4); Monocytes # (auto) 0.68 K/uL (0.11-0.59); Monocytes % (auto) 5.2 %; Neutrophils # (auto) 11.13 K/uL (1.40-6.50); Neutrophils % (auto) 85.8 %; Platelet Count 211 K/uL (130-400); RDW Coefficient of Variation 11.9 % (11.5-14.5); RDW Standard Deviation 37.2 fL (36.4-46.3); Red Blood Count 3.87 M/uL (4.20-5.40); White Blood Count 12.97 K/ul (4.8-10.8)
[2023-06-09] MEDS ORDERED: lamoTRIgine 100 MG TAB PO SCH (09:00)
--- NOTE | 2023-06-09 14:32 | Discharge Summary ---
Date of Service June 09, 2023 Admission HPI Per Admitting Provider Santos is a 23 year-old female who presented to emergency room last evening with complaint of abdominal pain that initially began last Wednesday/ however she felt this was due to constipation. Pain at that time was off and on and more of a pressure sensation. States pain became more consistent, and stabbing pain yesterday with associated nausea and diarrhea. No vomiting. No fevers or chills. No prior history of similar pain. Took Miralax and gas x yesterday morning which did not alleviate her pain. Had some diarrhea last evening. Had laparoscopic cholecystectomy in 2021, no issues. ER work-up included labs which showed no leukocytosis however bandemia of 7.11. CT scan of abdomen/pelvis with IV contrast showing thick walled appendix with periappendiceal inflammation consitent with acute appendicitis. She currently states she is feeling slightly better but pain about the same. No nausea or vomiting overnight. No fever or chills. Principal Diagnosis acute appendicitis Discharge Exam Constitutional WD/WN, vitals as above cooperative and comfortable; no acute distress and not ill appearing Respiratory normal respiratory effort; no respiratory distress Gastrointestinal (Abdomen) Inspection/Auscultation: abdomen normal to inspection and + abdominal surgical incision (covered with clean/dry/intact dressings); abdomen not distended Percussion/Palpation: + abdomen tender (very mild at incision sites) and abdomen soft; no guarding, abdomen not rigid and abdomen not firm Skin no rashes, warm and dry Psychiatric A+Ox3, euthymic affect Discharge Data Allergies Allergy/AdvReac Type Severity Reaction Status Date / Time amoxicillin Allergy Mild Rash Verified 06/07/23 23:21 Penicillins Allergy Mild Rash Verified 06/07/23 23:21 Consultations 06/08/23 00:14 Consult General Surgery Stat Procedures Performed Operation Date: 06/08/23 09:30 Actual Procedures p Laparoscopic Appendectomy(Not Applicable) - Katty Abbott MD Ordered Studies 06/07/23 22:39 CT abd pelvis IV con only Stat Hospital Course (1) Acute appendicitis: Plan Patient was admitted to medical/surgical floor from emergency department and evaluated in morning of 06/08/2023. Patient taken to operating room for laparoscopic appendectomy by Dr. Abbott. Patient found to have acute appendicitis without perforation or rupture. Patient tolerated procedure without difficulty and was transferred back to med/surg floor for postop care. Diet advanced to clear liquids then as tolerated, activity as tolerated, PO Percocet prn pain, antiemetics as needed. Patient evaluated on POD # 1 , avss, pain controlled and minimal, tolerating diet. Patient was discharged home on POD # 1 in stable condition. Total Time Total Time Spent Total Time Spent (In Minutes): 30 minutes Total Time Includes: Examination of the Patient, Discharge Planning and Medication Reconciliation Discharge Plan Discharge Items Patient Disposition: Home - Self-Care Reason For Visit: ACUTE APPENDICITIS Discharge Diagnosis: Acute appendicitis Activity: Per Instructions section Non-emergency contact: Primary Care Provider and Surgeon Call non-emergency contact if: you have any medication questions, your pain is not controlled, your pain is worsening, your pain is concerning for you, you have a fever, your wound has increased redness, your wound has increased drainage and your wound pain has increased Follow-up/Referrals: Kita Mccormick PA-C [Physician Industrial Trainer] - Katty Abbott MD [Physician] - 06/23/23 10:15 am (Please arrive to appointment 15 min. early) Shauna Helton MD [Primary Care Provider] - Diet: Regular Addtl Attending Provider Instructions: Post-Surgical ~Discharge Instructions Activity Recommendations: - lifting limitation: (20 pounds for 4 weeks), - exercise/sex/sports limit: (nonstrenuous for 2 weeks), - driving or machine use limit: (none for 1 week or until pain free and no longer taking narcotic pain medication), - Shower/bathe limit: (may shower beginning Wednesday) Diet: - Resume previous diet SPECIAL CARE INSTRUCTIONS: - May shower on Wednesday, sponge bath around incisions and wash hair in meantime. On Wednesday, remove outer dressings and shower. Let water run over area and pat d ry. - Leave steri strips on for one week and then remove. - Call the surgeon's office with any questions or concerns - - (ex. temperature higher than 101 degrees F, excessive bleeding or pain). MEDICATIONS: - Resume previous medications unless instructed otherwise by your surgeon. - May alternate extra strength Tylenol and Ibuprofen as needed for mild to moderate pain -650 mg Tylenol every 6 hours as needed - Ibuprofen 600 mg every 6 hours as needed (take with food) - Percocet 1 every 6 hours, as needed for moderate to severe pain - Recommend daily stool softener (Colace) while taking narcotic pain medication to prevent constipation or straining. Drink plenty of water daily. FOLLOW UP VISIT: - If not already scheduled, please call the office to schedule a two week follow-up appointment. Office number Pending Studies at Discharge: Yes (surgical pathology, will be reviewed at posto p visit) Stand-Alone Forms: My [facility] [address], Work/School Release, Smoking Cessation Medications and DC Order Prescriptions: New oxycodone-acetaminophen 5-325 mg tablet 1 tab PO Q6H PRN (Reason: pain) Qty: 5 0RF Continued sucralfate [Carafate] 1 gram tablet 1 g PO BID Qty: 60 0RF lamotrigine [Lamictal] 100 mg Tablet 100 mg PO DAILY Discharge Orders: Discharge Order (Routine); Ordered 06/09/23 Ordered By: Kita Mccormick Admission Data Admit Date/Time: 06/08/23 00:21 Attending Provider: Nano Bower Admit Provider: Nano Bower Primary Care Provider: Shauna Helton Other Providers: Nano Bower Other Interventions: Discharge Summary Assessment (RN) Last Done: 06/09/23 12:42
== END 2023-06-09 13:18 | disposition home or self-care (01) ==
LOC: 3N 22:27 → ED 22:27 → 3N 06-08 01:53

== ENCOUNTER 2024-06-24 12:29 | Inpatient (IN) ==
[2024-06-24] MEDS: ONDANSETRON INJ 2 MG/ML 2 ML VIAL IV STA (13:05)
[2024-06-24] MEDS: KETOROLAC TROMETHAMINE 15 MG/ML VIAL IV ONE (13:05)
[2024-06-24] MEDS: MoRPHine SULFATE 4 MG/ML 1 ML CARP\\VIAL IV STA (13:06)
[2024-06-24] MEDS: CLINDAMYCIN/D5W 900 MG/50 ML BAG IV ONE (13:17)
[2024-06-24 13:29] LABS: Basophils # (auto) 0.03 K/uL (0.00-0.20); Basophils % (auto) 0.4 %; Eosinophils # (auto) 0.05 K/uL (0.00-0.50); Eosinophils % (auto) 0.6 %; Hematocrit (blood only) 39.8 % (37.0-47.0); Hemoglobin 13.5 g/dl (12.0-16.0); Immature Granulocytes # (auto) 0.02 K/uL (0.01-0.20); Immature Granulocytes % (auto) 0.2 %; Lymphocytes % (auto) 11.8 %; Mean Corpuscular Hemoglobin 30.3 pg (25.0-34.0); Mean Corpuscular Hgb Conc 33.9 g/dL (32.0-36.0); Mean Corpuscular Volume 89.4 fL (80.0-100.0); Mean Platelet Volume 9.7 fL (9.4-12.4); Monocytes # (auto) 0.68 K/uL (0.11-0.59); Neutrophils # (auto) 6.69 K/uL (1.40-6.50); Platelet Count 221 K/uL (130-400); RDW Coefficient of Variation 11.7 % (11.5-14.5); RDW Standard Deviation 38.1 fL (36.4-46.3); Red Blood Count 4.45 M/uL (4.20-5.40); White Blood Count 8.47 K/ul (4.8-10.8)
[2024-06-24 13:48] LABS: Albumin Level 4.4 gm/dl (3.4-5.0); Bilirubin,Total 0.6 mg/dl (0.2-1.0); Calcium 9.4 mg/dl (8.6-10.3); Potassium 3.7 mmol/L (3.5-5.1)
[2024-06-24 13:54] LABS: Albumin Globulin Ratio 1.6 (0.9-2); Creatinine Clr Calc Pharmacy 111.1 ml/min; Est GFR (Non-African American) 109.6 ml/min; Globulin 2.8 gm/dl (2.5-4.0); Total Protein 7.2 gm/dl (6.0-8.3)
[2024-06-24] MEDS: OPTIRAY 320 100ml IV ONE (14:01)
--- NOTE | 2024-06-24 14:15 | CT Scan Report ---
CT facial bones w con CLINICAL HISTORY: Worsening R facial edema - periapical abscesses COMPARISON STUDY: Facial CT July 03, 2024. TECHNIQUE: Axial images of the face were obtained following intravenous injection of 94 cc of Optiray 320 IV. Sagittal and coronal reconstructions were viewed. Automated exposure control was utilized fo r the study. A dose lowering technique was utilized adhering to the principles of ALARA. FINDINGS: Visualized portions of the intracranial contents are unremarkable. Major vasculature of the upper neck is patent. The epiglottis is normal. The parotid and submandibular glands are normal. Mul tiple dental caries are noted. There is a periapical abscess of the left first maxillary molar as wel l as the left maxillary lateral incisor. Note is made of a periapical abscess involving the right max illary medial and lateral incisors, as shown on CT. There is an associated rim-enhancing fluid collec tion along the anterior aspect of the right maxilla extending superiorly. This measures 1.7 x 1 cm. T his measures 1 x 0[address] of June 23, 2024. There is moderate adjacent inflammation consistent w ith cellulitis. No additional rim-enhancing fluid collections are present. IMPRESSION: Odontogenic disease including multiple dental caries and periapical abscesses. Periapica l abscess of the right maxillary medial and lateral incisors with an associated 1.7 x 1 cm soft tissu e abscess which has increased in size since CT of June 23, 2024. Persistent associated inflammation consistent with cellulitis. No additional soft tissue abscesses. ACT 112: Negative or not required by law. Electronically signed by: Salomón Jin M.D. 06/24/2024 2:12 PM
--- NOTE | 2024-06-24 15:21 | History & Physical Report ---
Date of Service June 24, 2024 Assessment & Plan (1) Periapical abscess with facial involvement: (2) Facial cellulitis: Plan: - Admit to med surg - Continue aztreonam and flagyl IV to continue empiric abx as pt has been outpatient clinda PO for several days - CT face reviewed showing: IMPRESSION: Odontogenic disease including multiple dental caries and periapical abscesses. Periapical abscess of the right maxillary medial and lateral incisors with an associated 1.7 x 1 cm soft tissue abscess which has increased in size since CT of June 23, 2024. Persistent associated inflammation consistent with cellulitis. No additional soft tissue abscesses. - Pain control ordered with toradol, avoid narcotics w hx of use of cocaine although has been off this x 3 years - No leukocytosis, follow WBC with am labs, afebrile - Obtain blood cultures x 1 set - Smoking cessation encouraged at bedside (3) Bipolar 1 disorder: (4) Depression: (5) Attention deficit disorder (ADD): Plan: - Outpatient meds: not on any for bipolar, only on ADHD medications currently DVT ppx: ambulatory, scds Lines: PIV x 1 FEN/GI: allow clears for now, NPO at midnight CODE: FULL Dispo: From home, likely to remain in the hospital x 1-2 days A total of 75 minutes were spent with greater than 50% of that time face to face with the patient, personally reviewing all current laboratories, imaging studies, past medication reconciliation, outpatient chart review, and discussion with specialists to collaborate care for the patient with attending. Please see attending documentation for corrections and/or additions. History of Present Illness Chief Complaint: Dental complaint, pain Primary Care Provider: Shauna Helton MD This is a 24-year-old female with PMHx of bipolar disorder, ADHD, PTSD, substance abuse, vapes, depression with anxiety who presents to the hospital for the third time in the past 2 days for complaints of worsening mouth pain and concern for dental abscess. She had been seen by dentist due to developement of dental pain on Wednesday, and had bitewing x-rays completed which showed multiple dental caries, was placed on oral clindamycin. Despite antibiotics, pt had worsening pain and therefore presented to the ER on 06/23 in the ER upon first visit, and then again this morning. She had received IV clindamycin yesterday and today in the ER. Pt denies any fever, chills or sweats. No issues with swallowing or saliva drainage. She has not eaten today due to pain. She is tolerating sips of water and gingerale at bedside. Her mother is here with her present at bedside, and supports the history. She states that the patient had an episode of a dental abscess in 2017 which spread to cellulitis and she became septic from such. She also notes the allergic reaction to penicillin of rash was noted when the patient was an with bright red rash over her face and neck. Dr. Padron has been consulted for possible abscess drainage, possible OR tomorrow morning. Medicine will admit the patient with IV antibiotics for monitoring. Social history: Patient currently vapes nicotine, has for at least 3 years, cessation encouraged at bedside. She denies any alcohol use. Patient admits to history of snorting cocaine use but has been sober for 3 years. Denies any IV drug abuse. Previously smoked marijuana occasionally. Patient lives with boyfriend. Sexually active. Does not use oral contraceptive. Allergies Allergy/AdvReac Type Severity Reaction Status Date / Time amoxicillin Allergy Mild RED Verified 06/24/24 15:23 FACE/RASH Penicillins Allergy Mild RED Verified 06/24/24 15:23 FACE/RASH Home Medications Medication Instructions Recorded Confirmed Type dextroamphetamine-amphetamine 10 10 mg PO DIRECTED PRN HIGH 06/23/24 06/24/24 History mg tablet STRESS/CONCENTRATION DAYS dextroamphetamine-amphetamine ER 15 mg PO QAM 06/23/24 06/24/24 History 15 mg 24hr capsule,extend release Past Med/Surg History Problem List (Updated 06/24/24 @ 16:29 by Carlos Epps) Dental abscess (Acute) Periapical abscess with facial involvement (Acute) Hx laparoscopic cholecystectomy (12/04/21) Diagnostic Laparoscopy, Laparoscopic Cholecystectomy- [facility], 12/04/2021 Encounter for pre-operative examination Depression (Chronic) Dental abscess (Acute) Facial cellulitis (Acute) High risk sexual behavior in adolescent Constipation Bipolar 1 disorder Nausea with vomiting, unspecified Weight loss, non-intentional Facial cellulitis RESOLVED Depression (Acute) Medical History Acute appendicitis History of COVID-19 DX'D 11/14/21 THRU EMPL[employer]ED [employer]-CONTACT WITH SISTER WHO WAS COVID [id number] AT HOME Chronic back pain GERD (gastroesophageal reflux disease) Bipolar disorder Attention deficit disorder (ADD) Encounter for screening for infections with predominantly sexual mode of transmission Dysmenorrhea Surgical History History of esophagogastroduodenoscopy (EGD) S/P wisdom tooth extraction Family History Family/Other Diabetes Grandmother Diabetes Denies family history of Ovarian cancer Breast cancer Colorectal cancer Uterine cancer Social History Smoking Status: Current every day smoker Tobacco Type: E-cigarettes / Vaping Cigarettes Per Day: VAPES DAILY ALL DAY; Second Hand Exposure: No; Do You Dip or Chew Tobacco: No; Hx Alcohol Use: No Hx Substance Use: No Preferred Language: Croatian Communication Ability: Effective Lead Applier Required: No Beliefs That Will Affect Care: None marital status: Single Current Living Situation: Significant Other current occupational status: employed 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 [employer] How many Children do You have: 0 Feels Safe at Home: Yes Safety Concerns: Feels Safe At This Time during the past year weight has: decreased > 10 lbs Assistive Devices: None Review of Systems Review of Systems: Constitutional: No fever, sweats or chills Eyes: No diplopia, no worsening or blurred vision ENT: normal hearing, no trouble swallowing, + oral pain/dental infection as per HPI Respiratory: No cough, sputum, dyspnea at rest or on exertion Cardiovascular: No chest pain, tightness or palpitations Abdomen: No pain, nausea, vomiting, diarrhea or constipation Musculoskeletal: No joint pain, calf pain, swelling Neurologic: No weakness, numbness/tingling, or balance problems Psychiatric: History of bipolar disorder, ADHD on medication Skin: No rash or itch Physical Exam Physical Exam: General: awake, alert, no apparent distress, white female Head: Normocephalic, atraumatic ENT: PERRL, EOMI, no pharyngeal exudate, mucous membranes moist, + front left central incisor #8 tooth with small chip, left bottom cuspid #22 tooth darkened with dental caries, right upper cuspid #6 darkened, abscess noted on right maxilla above gumline bright red, fluctuant, upper lip is swollen, cheek appears swollen on the right, light red erythema extending up to the bottom of the right eye not involving the orbit. Chest: Clear to auscultation, on room air, no adventitious breath sounds Cardiac: Regular rate and rhythm, no murmur, no JVD, normal peripheral pulses, good capillary refill Abdominal: NABS x 4 quadrants, soft, nondistended, nontender to palpation, no rebound or guarding Extremities: Normal inspection, no peripheral edema or erythema, calfs nontender to palpation Psych: Normal mood and affect Neuro: AAO x 3, strength intact bilaterally and rated 5/5, no motor deficits, speech is clear, no peripheral sensory deficits Results & Data Results & Data Vital Signs (Past 12 Hours) Vital Signs Temp Pulse Resp BP Pulse Ox O2 Del Method 06/24/24 12:44 36.7 C 92 H 18 110/72 96 Room Air Laboratory Results 06/24/24 13:04 WBC 8.47 RBC 4.45 Hgb 13.5 Hct 39.8 MCV 89.4 MCH 30.3 MCHC 33.9 RDW Std Deviation 38.1 RDW Coeff of Ras 11.7 Plt Count 221 MPV 9.7 Immature Gran % (Auto) 0.2 Neut % (Auto) 79.0 Lymph % (Auto) 11.8 Pacific % (Auto) 8.0 Eos % (Auto) 0.6 Baso % (Auto) 0.4 Neut # (Auto) 6.69 H Lymph # (Auto) 1.00 L Pacific # (Auto) 0.68 H Eos # (Auto) 0.05 Baso # (Auto) 0.03 Immature Gran # (Auto) 0.02 Sodium 138 Potassium 3.7 Chloride 105 Carbon Dioxide 26 Anion Gap 7 BUN 10 Creatinine 0.77 Est Cr Clr Drug Dosing 111.1 Est GFR ( Amer) 127.0 Est GFR (Non-Af Amer) 109.6 BUN/Creatinine Ratio 13.0 Glucose 101 H Calcium 9.4 Total Bilirubin 0.6 AST 12 L ALT 9 Alkaline Phosphatase 58 Total Protein 7.2 Albumin 4.4 Globulin 2.8 Albumin/Globulin Ratio 1.[address] 06/24/24 12:56 CT facial bones w con CLINICAL HISTORY: Worsening R facial edema - periapical abscesses COMPARISON STUDY: Facial CT July 03, 2024. TECHNIQUE: Axial images of the face were obtained following intravenous injection of 94 cc of Optiray 320 IV. Sagittal and coronal reconstructions were viewed. Automated exposure control was utilized for the study. A dose lowering technique was utilized adhering to the principles of ALARA. FINDINGS: Visualized portions of the intracranial contents are unremarkable. Major vasculature of the upper neck is patent. The epiglottis is normal. The parotid and submandibular glands are normal. Multiple dental caries are noted. There is a periapical abscess of the left first maxillary molar as well as the left maxillary lateral incisor. Note is made of a periapical abscess involving the right maxillary medial and lateral incisors, as shown on CT. There is an associated rim-enhancing fluid collection along the anterior aspect of the right maxilla extending superiorly. This measures 1.7 x 1 cm. This measures 1 x 0[address] of June 23, 2024. There is moderate adjacent inflammation consistent with cellulitis. No additional rim-enhancing fluid collections are present. IMPRESSION: Odontogenic disease including multiple dental caries and periapical abscesses. Periapical abscess of the right maxillary medial and lateral incisors with an associated 1.7 x 1 cm soft tissue abscess which has increased in size since CT of June 23, 2024. Persistent associated inflammation consistent with cellulitis. No additional soft tissue abscesses. ACT 112: Negative or not required by law. Electronically signed by: Salomón Jin M.D. 06/24/2024 2:12 PM Code Status & VTE Plan Code Status Full code Supervising Physician Co-Signing Physician Notes Attending Addendum: Case reviewed with the advanced practitioner. I have personally performed a history and physical examination on the patient. I have reviewed the advanced practitioner's documentation on the date of service referenced in note, and I agree with, and take responsibility for the plan of care. please refer to her notes for full details patient seen and examined, records reviewed by myself as well on exam, patient Seen sitting up in bed, comfortable, not in distress HIEN Linh Alonso at the bedside throughout whole encounter Patient states pain is adequate controlled at this point Denies difficulty with swallowing, shortness of breath no other symptoms VS noted and reviewed: oriented x 3 , not in distress, speaks in sentences with no effort nor accessory muscle use Head and neck- Moderate edema lower half of the right side of the face Mild erythema noted Positive gingival swelling right maxillary region No neck edema/erythema/tenderness normal rate, regular rhythm, no murmurs clear breath sounds bilaterally non distended, soft, nontender no bipedal edema, erythema, warmth no neuro deficits all labs, imaging noted and reviewed ASSESSMENT AND PLAN> Dental abscesses-right maxillary medial and lateral incisors Facial cellulitis Obtain blood cultures Start aztreonam plus Flagyl, patient has rashes with penicillin Dr. Padron notified, NPO post midnight, possible drainage tomorrow other diagnoses and plan of care as per advanced practitioner's notes Kenny Coombs MD
--- NOTE | 2024-06-24 16:29 | Emergency Department Note ---
ED Provider Note History of Present Illness Chief Complaint: Dental/Oral Stated Complaint: ABCESS TOOTH ON R, FACIAL SWELLING AND PAIN Time Seen by Provider: 06/24/24 12:48 24-year-old female who returns to the emergency department with complaint of progressively worsening facial swelling and pain from a dental infection. I saw the patient yesterday morning with similar symptoms. She had CT imaging showing multiple periapical abscesses. She was administered IV clindamycin, and discharged for follow-up with her dentist. The patient reports that symptoms have progressively worsened. She denies any fever or chills. The patient has been taking her clindamycin antibiotics as prescribed. She reports increasing swelling of the face, and currently rates her discomfort an 8 out of 10. Home Medications Medication Instructions Recorded Confirmed Type dextroamphetamine-amphetamine 10 10 mg PO DIRECTED PRN HIGH 06/23/24 06/24/24 History mg tablet STRESS/CONCENTRATION DAYS dextroamphetamine-amphetamine ER 15 mg PO QAM 06/23/24 06/24/24 History 15 mg 24hr capsule,extend release Allergies Allergy/AdvReac Type Severity Reaction Status Date / Time amoxicillin Allergy Mild RED Verified 06/24/24 15:23 FACE/RASH Penicillins Allergy Mild RED Verified 06/24/24 15:23 FACE/RASH Past Med/Surg History Problem List (Updated 06/24/24 @ 16:29 by Carlos Epps) Dental abscess (Acute) Periapical abscess with facial involvement (Acute) Hx laparoscopic cholecystectomy (12/04/21) Diagnostic Laparoscopy, Laparoscopic Cholecystectomy- Bryan Maxwell DO 12/04/2021 Encounter for pre-operative examination Depression (Chronic) Dental abscess (Acute) Facial cellulitis (Acute) High risk sexual behavior in adolescent Constipation Bipolar 1 disorder Nausea with vomiting, unspecified Weight loss, non-intentional Facial cellulitis RESOLVED Depression (Acute) Medical History Acute appendicitis History of COVID-19 DX'D 11/14/21 THRU [employer]ED [employer]-CONTACT WITH SISTER WHO WAS COVID [id number] AT HOME Chronic back pain GERD (gastroesophageal reflux disease) Bipolar disorder Attention deficit disorder (ADD) Encounter for screening for infections with predominantly sexual mode of transmission Dysmenorrhea Surgical History History of esophagogastroduodenoscopy (EGD) S/P wisdom tooth extraction Family History Family/Other Diabetes Grandmother Diabetes Denies family history of Ovarian cancer Breast cancer Colorectal cancer Uterine cancer Social History Smoking Status: Current every day smoker Tobacco Type: E-cigarettes / Vaping Cigarettes Per Day: VAPES DAILY ALL DAY; Second Hand Exposure: No; Do You Dip or Chew Tobacco: No; Hx Alcohol Use: No Hx Substance Use: No Preferred Language: Maltese Communication Ability: Effective Staff Writer Required: No Beliefs That Will Affect Care: None marital status: Single Current Living Situation: Significant Other current occupational status: employed 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 [employer] How many Children do You have: 0 Feels Safe at Home: Yes during the past year weight has: decreased > 10 lbs Assistive Devices: Glasses Physical Exam Vital Signs Vital Signs - 24 hr 06/24/24 12:44 06/24/24 16:40 Temperature 36.7 C Temperature Source Temporal Artery Scan Pulse Rate 92 H 72 Respiratory Rate 18 Respiratory Effort / Characteristics Non-Labored Spontaneous Respiratory Depth Normal Respiratory Pattern Regular Blood Pressure 110/72 Blood Pressure Mean 84 Pulse Oximetry 96 Oxygen Delivery Method Room Air Sepsis Recent Fever Within 48 Hours No Sepsis New/Unexplained Change in Mental Status N/A Sepsis Action Taken by Nursing No Action Required CONSTITUTIONAL: Healthy and well nourished. Patient appears in mild discomfort. HEENT: Examination does show increasing edema of the right upper lip and nasolabial fold region. Nares are clear. Examination of oropharynx does show development of gingival edema without any obvious fluctuance or drainage. No facial erythema noted. NECK: Full active range of motion without discomfort. LYMPHATICS: No cervical chain adenopathy. INTEGUMENTARY: No rash or other significant dermatologic conditions noted. HEMATOLOGIC: No ecchymosis or petechiae. PSYCHIATRIC: Positive affect. NEUROLOGIC: Facial sensations are intact. Course Course Patient history and physical exam were performed. Nurses notes reviewed. Vital signs were reviewed. IV access was established, and labs were ordered, drawn, reviewed and grossly normal. The patient was hydrated with normal saline, and administered IV morphine, Toradol and Zofran for pain. CT with IV contrast of the facial bones shows a developing abscess around ADA 7 and 8. Findings were discussed with the patient. I also discussed antibiotic choices with her ED Pharmacist, who recommended continuing with IV clindamycin. I did reach out to Dr. Padron, maxillofacial surgeon on-call, who recommended admission for IV antibiotics. He will reevaluate the patient tomorrow, possibly performing an I&D procedure. The case was then discussed with the [facility]ist service, who agrees with overnight observation. Please see Dr. Padron's and [facility] Hospitalist dictations for further treatment and final disposition. Administered Medications Discontinued Medications Clindamycin Phosphate (Cleocin/D5w) 900 mg in 50 mls @ 100 mls/hr IV NOW ONE Stop: 06/24/24 13:25 Last Infusion: 06/24/24 15:01 Dose: Infused Documented By: Admin: 06/24/24 13:17 Dose: 100 mls/hr Documented By: ABHILASH Ioversol (Optiray 320 100ml) 94 ml IV ONCE ONE Stop: 06/24/24 14:02 Last Admin: 06/24/24 14:01 Dose: 94 ml Documented By: DANIEL Ketorolac Tromethamine (Ketorolac Tromethamine 15 Mg/Ml Vial) 10 mg IV NOW ONE Stop: 06/24/24 12:57 Last Admin: 06/24/24 13:05 Dose: 10 mg Documented By: ABHILASH Morphine Sulfate (Morphine Sulfate 4 Mg/Ml 1 Ml Carp\Vial) 4 mg IV NOW STA Stop: 06/24/24 12:57 Last Admin: 06/24/24 13:06 Dose: 4 mg Documented By: ABHILASH Ondansetron HCl (Ondansetron Inj 2 Mg/Ml 2 Ml Vial) 4 mg IV NOW STA Stop: 06/24/24 12:57 Last Admin: 06/24/24 13:05 Dose: 4 mg Documented By: ABHILASH Medical Decision Making Medical Records Attestation: I reviewed the patient's medical records. Home Medications was personally reviewed by me Laboratory Data Attestation: I reviewed the patient's lab results. 06/24/24 13:04 06/24/24 13:04 Lab Results 06/24/24 Range/Units 13:04 WBC 8.47 (4.8-10.8) K/ul RBC 4.45 (4.20-5.40) M/uL Hgb 13.5 (12.0-16.0) g/dl Hct 39.8 (37.0-47.0) % MCV 89.4 (80.0-100.0) fL MCH 30.3 (25.0-34.0) pg MCHC 33.9 (32.0-36.0) g/dL RDW Std Deviation 38.1 (36.4-46.3) fL RDW Coeff of Ras 11.7 (11.5-14.5) % Plt Count 221 (130-400) K/uL MPV 9.7 (9.4-12.4) fL Immature Gran % (Auto) 0.2 % Neut % (Auto) 79.0 % Lymph % (Auto) 11.8 % [place] % (Auto) 8.0 % Eos % (Auto) 0.6 % Baso % (Auto) 0.4 % Neut # (Auto) 6.69 H (1.40-6.50) K/uL Lymph # (Auto) 1.00 L (1.20-3.40) K/uL [place] # (Auto) 0.68 H (0.11-0.59) K/uL Eos # (Auto) 0.05 (0.00-0.50) K/uL Baso # (Auto) 0.03 (0.00-0.20) K/uL Immature Gran # (Auto) 0.02 (0.01-0.20) K/uL Sodium 138 (136-145) mmol/L Potassium 3.7 (3.5-5.1) mmol/L Chloride 105 (98-107) mmol/L Carbon Dioxide 26 (21-32) mmol/L Anion Gap 7 (3-11) BUN 10 (6-23) mg/dl Creatinine 0.77 (0.6-1.2) mg/dl Est Cr Clr Drug Dosing 111.1 ml/min Est GFR ( Amer) 127.0 ml/min Est GFR (Non-Af Amer) 109.6 ml/min BUN/Creatinine Ratio 13.0 (10-20) Glucose 101 H (70-99(Fasting)) mg/dl Calcium 9.4 (8.6-10.3) mg/dl Total Bilirubin 0.6 (0.2-1.0) mg/dl AST 12 L (13-39) U/L ALT 9 (7-52) U/L Alkaline Phosphatase 58 (34-104) U/L Total Protein 7.2 (6.0-8.3) gm/dl Albumin 4.4 (3.4-5.0) gm/dl Globulin 2.8 (2.5-4.0) gm/dl Albumin/Globulin Ratio 1.6 (0.9-2) Imaging Data Attestation: I personally reviewed and interpreted this imaging study as follows: My Impression: My interpretation of the CT with IV contrast of the facial bones shows a developing/enlarging abscess of the right maxillary gingiva around ADA 7 and 8. Radiologist report was also reviewed with concurrence. Radiologist's Impression: Face CT 06/24/24 12:56 CT facial bones w con CLINICAL HISTORY: Worsening R facial edema - periapical abscesses COMPARISON STUDY: Facial CT July 03, 2024. TECHNIQUE: Axial images of the face were obtained following intravenous injection of 94 cc of Optiray 320 IV. Sagittal and coronal reconstructions were viewed. Automated exposure control was utilized for the study. A dose lowering technique was utilized adhering to the principles of ALARA. FINDINGS: Visualized portions of the intracranial contents are unremarkable. Major vasculature of the upper neck is patent. The epiglottis is normal. The parotid and submandibular glands are normal. Multiple dental caries are noted. There is a periapical abscess of the left first maxillary molar as well as the left maxillary lateral incisor. Note is made of a periapical abscess involving the right maxillary medial and lateral incisors, as shown on CT. There is an associated rim-enhancing fluid collection along the anterior aspect of the right maxilla extending superiorly. This measures 1.7 x 1 cm. This measures 1 x 0[address] of June 23, 2024. There is moderate adjacent inflammation consistent with cellulitis. No additional rim-enhancing fluid collections are present. IMPRESSION: Odontogenic disease including multiple dental caries and periapical abscesses. Periapical abscess of the right maxillary medial and lateral incisors with an associated 1.7 x 1 cm soft tissue abscess which has increased in size since CT of June 23, 2024. Persistent associated inflammation consistent with cellulitis. No additional soft tissue abscesses. ACT 112: Negative or not required by law. Electronically signed by: Salomón Jin M.D. 06/24/2024 2:12 PM MDM Narrative See ED Course section for further details of today's visit. The patient presents with complaint of worsening dental pain and swelling from a dental infection. This is the patient's fourth visit now within the past 48 hours for her condition. She was initially seen by her dentist, and has also been evaluated in the emergency department 3 times for infection. Her last 2 visits required administration of IV clindamycin antibiotics. Repeat CT imaging today does show evidence for developing abscess. I did discuss the case further with Dr. Padron. Given her worsening condition with both oral and IV antibiotics, he has recommended admission for further management until he can reevaluate the patient tomorrow for possible I&D procedure. Impression Dental abscess Discharge Plan Visit Data Chief Complaint: Dental/Oral Stated Complaint: ABCESS TOOTH ON R, FACIAL SWELLING AND PAIN ED Provider: Padilla Dumont ED Midlevel Provider: Carlos Epps Discharge Problem: Dental abscess Forms Stand Alone Forms: My [facility] Prescriptions Prescriptions: No Action dextroamphetamine-amphetamine 10 mg tablet 10 mg PO DIRECTED PRN (Reason: HIGH STRESS/CONCENTRATION DAYS) dextroamphetamine-amphetamine 15 mg capsule,extended release 24hr 15 mg PO QAM Referrals Referrals: Shauna Helton MD [Primary Care Provider] -
[2024-06-24] MEDS ORDERED: AZTREONAM 1,000 MG in DEXTROSE 5% MINI-B 100 ML IV SCH (17:35)
[2024-06-24] MEDS: KETOROLAC TROMETHAMINE 15 MG/ML VIAL IV PRN (18:22)
--- NOTE | 2024-06-24 18:37 | Oral/Maxillofacial Consult ---
Date of Consultation June 25, 2024 History of Present Illness Attending Physician: Kenny Coombs MD History of Present Illness Oral Maxillofacial Surgery Exam Present Complaint: I have pain/swelling/drainage from my infected upper anterior teeth. Symptoms have been ongoing for a while see ER notes Failed outpatient therapy--admitted for IV antibiotics, hydration and I &D/extractions The upper anterior teeth will need to be removed as just doing the I&D will only temporary fix the problem Obviously, she will not be happy with loosing the front teeth ! THE FRONT 4 UPPER TEETH 7,8,9,10 ARE GROSSLY PERIODONTALLY INFECTED WITH RADIOLUCENT BONE LESIONS AT THE APEX Oral Exam: Finding-- The upper anterior teeth will need to be removed as just doing the I&D will only temporary fix the problem Obviously, she will not be happy with loosing the front teeth ! THE FRONT 4 UPPER TEETH 7,8,9,10 ARE GROSSLY PERIODONTALLY INFECTED WITH RADIOLUCENT BONE LESIONS AT THE APEX Imaging: CT was reviewed, there were no abnormal findings other then the infected upper front teeth 7,8,9,10 Failed and Failing root canals The TMJ are well positioned and no evidence of bony pathology. The sinus some thickness right side, supporting bone maxillary anterior radiolucent bone defect second to chronic dental pathology Evaluated the nerve/sinus relationship to the roots of the teeth. The following teeth are failing and need extraction with the planned I & D 7,8,9,10 Soft tissue: The upper lip and nasolabial area is swollen Floor of the mouth, tongue, hard/soft palate, posterior pharyngeal area all with in normal limits, no pathology or abnormal findings noted. Oral Care: Overall oral care is fair Occlusion: Class I TMJ exam: No pop, clicking, pain, good ROM, No history of TMJ injury or dysfunction Periodontal exam: Swollen gingival tissue with evidence of early periodontal pathology. Head/Neck exam: Naso-labial swelling Neck is supple, FROM, Able to extend and flex neck w/o difficulty, no masses, no abnormalities, no airway issues, no evidence of sleep apnea. Treatment Plan: I&D with extractions of 7,8,9,10 Obtain dental x rays from her dentist Wednesday AM and finalize treatment plan I&D on the anterior nasolabial area and extraction and debridement of the infected bone anterior maxilla with primary closure is needed Set up with general anesthesia in hospital due to complexity of the procedure I reviewed the treatment plan and consent with the patient and mother. Understanding was expressed. Time was given for questions regarding the surgery, risks and post op care. Discussed alternative to treatment--procedure as planned, Do not do surgery The following teeth are decayed and fractured and removal is indicated NORA :7,8,9,10 with complex nasolabial and lateral nasal area I&D Risks discussed: Bleeding,Pain,swelling,infection, dry socket, delayed healing, nerve injury to face,lips,tongue,chin area which could be permanent (rare). TMJ, jaw stiffness, change in bite (rare), ear pain (referred). Sinus problems like fistula or infection. Need fir comprehensive dental care, need for temporary replacement of the 7-1- teeth. Home care reviewed: Need dental exam Need dental replacement tooth brushing, rinsing, follow up care with Dr Padron. diet=[id number] dental. Discussed activity level, driving/work while on Rx pain Meds. Surgery to be set up Wednesday AM after I obtain dental XRs from her dentist and determine if any other teeth are planed for extraction. Allergies Allergy/AdvReac Type Severity Reaction Status Date / Time amoxicillin Allergy Mild RED Verified 06/24/24 15:23 FACE/RASH Penicillins Allergy Mild RED Verified 06/24/24 15:23 FACE/RASH Home Medications Medication Instructions Recorded Confirmed Type dextroamphetamine-amphetamine 10 10 mg PO DIRECTED PRN HIGH 06/23/24 06/24/24 History mg tablet STRESS/CONCENTRATION DAYS dextroamphetamine-amphetamine ER 15 mg PO QAM 06/23/24 06/24/24 History 15 mg 24hr capsule,extend release Patient History Medical History Acute appendicitis History of COVID-19 DX'D 11/14/21 THRU EMPLOYED [employer]-CONTACT WITH SISTER WHO WAS COVID [id number] AT HOME Chronic back pain GERD (gastroesophageal reflux disease) Bipolar disorder Attention deficit disorder (ADD) Encounter for screening for infections with predominantly sexual mode of transmission Dysmenorrhea Surgical History History of esophagogastroduodenoscopy (EGD) S/P wisdom tooth extraction Family History Family/Other Diabetes Grandmother Diabetes Denies family history of Ovarian cancer Breast cancer Colorectal cancer Uterine cancer Social History Smoking Status: Current every day smoker Tobacco Type: E-cigarettes / Vaping Cigarettes Per Day: VAPES DAILY ALL DAY; Second Hand Exposure: No; Do You Dip or Chew Tobacco: No; Hx Alcohol Use: No Hx Substance Use: No Preferred Language: Armenian Communication Ability: Effective Dietary Services Director Required: No Beliefs That Will Affect Care: None marital status: Single Current Living Situation: Significant Other current occupational status: employed 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 THE FRONT 4 UPPER TEETH 7,8,9,10 ARE GROSSLY PERIODONTALLY INFECTED WITH RADIOLUCENT BONE LESIONS AT THE APEX Neck trachea midline, no thyromegaly Skin no rashes, warm and dry,swelling upper lip and right side of the nose from current infection Neurologic PERRL, EOMI, accommodation nl, no face palsy, no dysarthria Cranial Nerves: sense of smell intact, PERRL, normal accommodation, EOM intact bilaterally, normal facial strength, tongue midline, normal gag reflex, normal hearing, able to rotate head bilaterally, able to elevate shoulders bilaterally, no nystagmus and symmetric palate elevation Results & Data Vital Signs (Past 12 Hours) Vital Signs Temp Pulse Pulse Resp BP BP Pulse Ox 06/24/24 17:53 37.1 C 77 18 102/67 99 06/24/24 16:40 72 06/24/24 12:44 36.7 C 92 H 18 110/72 96 O2 Del Method 06/24/24 17:53 Room Air 06/24/24 16:40 06/24/24 12:44 Room Air PG Care Time/CCT Total # of Minutes Spent Total Time Spent with Patient: Total time spent is greater than 50% in coordination of care (as documented) at patient's floor/unit and/or counseling patient: Coding Level of Care Code 44308 IN/OBS CONSULT LVL 2,35M
[2024-06-24] MEDS: metroNIDAZOLE 500 MG/100 ML BAG IV SCH (18:59)
[2024-06-24] MEDS: AZTREONAM 2,000 MG in DEXTROSE 5% MINI-B 100 ML IV SCH (20:03)
[2024-06-24] MEDS: ACETAMINOPHEN 325 MG TAB PO PRN (21:07)
[2024-06-24] MEDS: HYDROmorphone INJ 0.5 MG/0.5 ML SYR IV STA (23:33)
[2024-06-25 06:13] LABS: Hematocrit (blood only) 33.8 % (37.0-47.0); Hemoglobin 11.4 g/dl (12.0-16.0); Mean Corpuscular Hgb Conc 33.7 g/dL (32.0-36.0); Mean Corpuscular Volume 88.9 fL (80.0-100.0); Mean Platelet Volume 9.9 fL (9.4-12.4); Platelet Count 189 K/uL (130-400); RDW Coefficient of Variation 11.5 % (11.5-14.5); White Blood Count 7.47 K/ul (4.8-10.8)
[2024-06-25 06:29] LABS: BUN Creatinine Ratio 17.2 (10-20); Calcium 8.6 mg/dl (8.6-10.3); Creatinine Clr Calc Pharmacy 133.6 ml/min; Est GFR (African American) 146.8 ml/min; Est GFR (Non-African American) 126.7 ml/min; Potassium 3.5 mmol/L (3.5-5.1)
--- NOTE | 2024-06-25 08:07 | Hospitalist Progress Note ---
Date of Service June 25, 2024 Assessment & Plan (1) Periapical abscess with facial involvement: (2) Facial cellulitis: (3) Bipolar 1 disorder: (4) Depression: (5) Attention deficit disorder (ADD): Plan This is a 24-year-old female with PMHx of bipolar disorder, ADHD, PTSD, substance abuse, vapes, depression with anxiety who presents to the hospital once more for complaints of worsening mouth pain and concern for dental abscess. Dental Abscesses Facial cellulitis Patient presenting with pain and facial swelling Repeat CT face noting progressed abscesses from the day prior Not septic at this time Blood cx x1 set pending Pt with penicillin allergy, continue IV Aztreonam and Flagyl Oromaxfacial surgery consulted, appreciate recs -to OR on 06/25 Continue to monitor Continue other home meds as ordered Diet: NPO at this time DVT prophylaxis: SCDs in periop setting Dispo: Home once medically stable Admission and Anticipated Discharge Date Admission Date: June 24, 2024 Subjective pt was seen before her surgery. States pain and swelling well controlled. Still able to swallow and chew if needed Denied acute concerns except asking about time for surgery. Review of Systems Review of Systems: All systems reviewed & are unremarkable except as noted in Subjective Physical Exam Physical Exam: General: Alert, oriented. No acute distress Skin: erythema to right face Psych: Appropriate mood and affect Neuro: No gross deficits HEENT: NC/AT, swelling to right face, mild erythema Chest: Nontender to palpation. CV: RRR, Normal s1, s2. No murmurs appreciated Resp: Breath sounds clear bilaterally, no increased effort of breathing. Abdomen:Soft, nontender Extremities: No edema in lower extremities bilaterally. Results & Data Results & Data Vital Signs (Past 12 Hours) Vital Signs Temp Pulse Resp BP Pulse Ox O2 Del Method 06/25/24 07:27 36.7 C 63 16 100/65 98 Room Air Diagnostic Findings Face CT 06/24/24 12:56 CT facial bones w con CLINICAL HISTORY: Worsening R facial edema - periapical abscesses COMPARISON STUDY: Facial CT July 03, 2024. TECHNIQUE: Axial images of the face were obtained following intravenous injection of 94 cc of Optiray 320 IV. Sagittal and coronal reconstructions were viewed. Automated exposure control was utilized for the study. A dose lowering technique was utilized adhering to the principles of ALARA. FINDINGS: Visualized portions of the intracranial contents are unremarkable. Major vasculature of the upper neck is patent. The epiglottis is normal. The parotid and submandibular glands are normal. Multiple dental caries are noted. There is a periapical abscess of the left first maxillary molar as well as the left maxillary lateral incisor. Note is made of a periapical abscess involving the right maxillary medial and lateral incisors, as shown on CT. There is an associated rim-enhancing fluid collection along the anterior aspect of the right maxilla extending superiorly. This measures 1.7 x 1 cm. This measures 1 x 0[address] of June 23, 2024. There is moderate adjacent inflammation consistent with cellulitis. No additional rim-enhancing fluid collections are present. IMPRESSION: Odontogenic disease including multiple dental caries and periapical abscesses. Periapical abscess of the right maxillary medial and lateral incisors with an associated 1.7 x 1 cm soft tissue abscess which has increased in size since CT of June 23, 2024. Persistent associated inflammation consistent with cellulitis. No additional soft tissue abscesses. ACT 112: Negative or not required by law. Electronically signed by: Salomón Jin M.D. 06/24/2024 2:12 PM
[2024-06-26 07:20] LABS: Basophils # (auto) 0.04 K/uL (0.00-0.20); Basophils % (auto) 0.8 %; Eosinophils # (auto) 0.19 K/uL (0.00-0.50); Eosinophils % (auto) 3.6 %; Hemoglobin 11.8 g/dl (12.0-16.0); Immature Granulocytes # (auto) 0.01 K/uL (0.01-0.20); Immature Granulocytes % (auto) 0.2 %; Lymphocytes # (auto) 1.25 K/uL (1.20-3.40); Lymphocytes % (auto) 23.9 %; Mean Corpuscular Hgb Conc 34.7 g/dL (32.0-36.0); Mean Corpuscular Volume 86.5 fL (80.0-100.0); Mean Platelet Volume 9.7 fL (9.4-12.4); Monocytes # (auto) 0.51 K/uL (0.11-0.59); Monocytes % (auto) 9.8 %; Neutrophils # (auto) 3.23 K/uL (1.40-6.50); Neutrophils % (auto) 61.7 %; Platelet Count 197 K/uL (130-400); RDW Coefficient of Variation 11.4 % (11.5-14.5); RDW Standard Deviation 36.9 fL (36.4-46.3); Red Blood Count 3.93 M/uL (4.20-5.40); White Blood Count 5.23 K/ul (4.8-10.8)
[2024-06-26 07:36] LABS: BUN Creatinine Ratio 19.4 (10-20); Calcium 8.8 mg/dl (8.6-10.3); Creatinine Clr Calc Pharmacy 118.8 ml/min; Est GFR (African American) 137.8 ml/min; Est GFR (Non-African American) 118.9 ml/min; Potassium 3.7 mmol/L (3.5-5.1)
--- NOTE | 2024-06-26 08:27 | Anesthesiology Consultation ---
Date of Service June 26, 2024 Assessment & Plan (1) Encounter for pre-operative examination: Chart Review Chart Review: Acceptable Risk for Surgery and Patient NOT seen in Pre Admission Testing Consults Requested none History Surgery Operation Date: 06/26/24 07:00 Proposed Procedures p Incision and Drainage Upper Jaw - Mayo Padron DMD s Extraction of Multiple Teeth - Mayo Padron DMD Height/Weight Height: 5 ft 3 in Weight: 74.843 kg Allergies Allergy/AdvReac Type Severity Reaction Status Date / Time amoxicillin Allergy Mild RED Verified 06/24/24 15:23 FACE/RASH Penicillins Allergy Mild RED Verified 06/24/24 15:23 FACE/RASH Medications Home Medications Medication Instructions Recorded Confirmed Last Taken dextroamphetamine-amphetamine 10 10 mg PO DIRECTED PRN HIGH 06/23/24 06/24/24 Unknown mg tablet STRESS/CONCENTRATION DAYS dextroamphetamine-amphetamine ER 15 mg PO QAM 06/23/24 06/24/24 06/23/24 15 mg 24hr capsule,extend release Active Medications Generic Name Dose Route Start Last Admin Trade Name Freq PRN Reason Stop Dose Admin Acetaminophen 650 mg 06/24/24 17:35 06/26/24 00:36 Acetaminophen 325 Mg Tab PO 07/24/24 17:34 650 mg Q4H PRN Administration Mild Pain (Scale 1, 2, 3) Metronidazole 500 mg in 100 mls @ 100 mls/hr 06/24/24 18:30 06/26/24 04:23 Flagyl IV 06/26/24 18:29 Infused Q8H DREW Infusion Protocol Aztreonam 2,000 mg/ Dextrose 100 mls @ 100 mls/hr 06/24/24 19:00 06/26/24 05:54 IV 06/26/24 18:59 Infused Q8H DREW Infusion Protocol Ketorolac Tromethamine 15 mg 06/24/24 17:35 06/25/24 13:46 Ketorolac Tromethamine 15 Mg/Ml Vial IV 06/29/24 17:34 15 mg Q6H PRN Administration Moderate Pain (Scale 4, 5, 6) Past Medical History Medical History (Updated 06/26/24 @ 08:23 by Cheo Phillips MD) History of COVID-19 DX'D 11/14/21 THRU [employer]PL[employer]ED [employer]-CONTACT WITH SISTER WHO WAS COVID COEATBMB-[id number]-[id number] AT HOME Chronic back pain GERD (gastroesophageal reflux disease) Bipolar disorder Attention deficit disorder (ADD) Dysmenorrhea June 25, 2024 Assessment & Plan (1) Periapical abscess with facial involvement: (2) Facial cellulitis: (3) Bipolar 1 disorder: (4) Depression: (5) Attention deficit disorder (ADD Past Family History Family History Family/Other Diabetes Grandmother Diabetes Denies family history of Ovarian cancer Breast cancer Colorectal cancer Uterine cancer Past Surgical History Surgical History History of esophagogastroduodenoscopy (EGD) S/P wisdom tooth extraction Social History Smoking Status: Current every day smoker tobacco type: e-cigarettes Smoking cigarettes per day: VAPES DAILY ALL DAY Do You Dip or Chew Tobacco: No Hx Alcohol Use: No Hx Substance Use: No substance use type: does not use Substance Use Type Other:: MARIJUANA INH 2-3 X A WEEK-NO CARD Physical Exam Vital Signs Last Vital Signs Temp 36.7 C 06/26/24 07:53 Pulse 66 06/26/24 07:53 Resp 16 06/26/24 07:53 BP 98/60 L 06/26/24 07:53 Pulse Ox 98 06/26/24 07:53 O2 Del Method Room Air 06/26/24 07:53 Testing Laboratory Results 06/26/24 06:23 06/26/24 06:23 06/24/24 16:00 Aerobic Blood Culture - Preliminary Blood No growth in Aerobic bottle after 24 hours. Anaerobic Blood Culture - Preliminary No growth in Anaerobic bottle after 24 hours. Electrocardiogram Date: 05/28/24 HR 65. NSR. Normal ECG. Chest X-Ray Date: 05/28/24 XR chest 1V portable HISTORY: Dyspnea COMPARISON: None. FINDINGS: The lungs are clear. Cardiac silhouette is normal in size. No pleural effusions. No pneumothorax. IMPRESSION: No acute process. Other Testing 06/24/24: FACE CT SCAN IMPRESSION: Odontogenic disease including multiple dental caries and periapical abscesses. Periapical abscess of the right maxillary medial and lateral incisors with an associated 1.7 x 1 cm soft tissue abscess which has increased in size since CT of June 23, 2024. Persistent associated inflammation consistent with cellulitis. No additional soft tissue abscesses.
--- NOTE | 2024-06-26 09:36 | History & Physical Bridge Note ---
Date of Service June 26, 2024 History & Physical Bridge Note I have examined the patient, reviewed the History & Physical and in the interval since the performance of the History & Physical I have noted the following changes of clinical significance: no changes noted. OK for the I&D and associated dental extraction
[2024-06-26] MEDS ORDERED: ePHEDrine sulfate 50 MG/ML AMP IV PRN (09:55)
[2024-06-26] MEDS ORDERED: ONDANSETRON INJ 2 MG/ML 2 ML VIAL IV PRN (09:55)
[2024-06-26] MEDS ORDERED: ATROPINE SULFATE 0.1 MG/ML 10ML SYR IV PRN (09:55)
--- NOTE | 2024-06-26 10:00 | Hospitalist Progress Note ---
Date of Service June 26, 2024 Assessment & Plan (1) Periapical abscess with facial involvement: (2) Facial cellulitis: (3) Bipolar 1 disorder: (4) Depression: (5) Attention deficit disorder (ADD): Plan This is a 24-year-old female with PMHx of bipolar disorder, ADHD, PTSD, substance abuse, vapes, depression with anxiety who presents to the hospital once more for complaints of worsening mouth pain and concern for dental abscess. Dental Abscesses Facial cellulitis Patient presenting with pain and facial swelling Repeat CT face noting progressed abscesses from the day prior Not septic at this time Blood cx x1 set pending Pt with penicillin allergy, was initially on IV Aztreonam and Flagyl---> IV ertapenem Oromaxfacial surgery consulted, appreciate recs -to OR on 06/26 -intraop culture pending Continue to monitor Continue other home meds as ordered Diet:full liquids at this time, advance as tolerated DVT prophylaxis: SCDs in periop setting Dispo: Home once medically stable Admission and Anticipated Discharge Date Admission Date: June 24, 2024 Subjective pt was seen after her surgery. States she does not want to eat yet. Pain controlled Review of Systems Review of Systems: All systems reviewed & are unremarkable except as noted in Subjective Physical Exam Physical Exam: General: Alert, oriented. No acute distress Skin: erythema to right face Psych: Appropriate mood and affect Neuro: No gross deficits HEENT: NC/AT, swelling to right face, mild erythema Chest: Nontender to palpation. CV: RRR, Normal s1, s2. No murmurs appreciated Resp: Breath sounds clear bilaterally, no increased effort of breathing. Abdomen:Soft, nontender Extremities: No edema in lower extremities bilaterally. Results & Data Results & Data Vital Signs (Past 12 Hours) Vital Signs Temp Pulse Resp BP Pulse Ox O2 Del Method 06/26/24 08:49 37.1 C 86 16 119/71 98 Room Air 06/26/24 07:53 36.7 C 66 16 98/60 L 98 Room Air
[2024-06-26] MEDS ORDERED: fentaNYL citrate PF 100 MCG/2 ML VIAL ONE (10:01)
[2024-06-26] MEDS ORDERED: MIDAZOLAM HCL 1 MG/ML 2ML VIAL ONE (10:02)
[2024-06-26] MEDS ORDERED: DROPERIDOL 5 MG/2 ML VIAL ONE (10:39)
[2024-06-26] MEDS ORDERED: SUGAMMADEX SODIUM 200 MG/2 ML VIAL IV ONE (10:45)
[2024-06-26] MEDS: BUPIVACAINE/EPINEPHRINE 0.5% 1:200,000 1.8 ML CARP ONE (10:51)
[2024-06-26] MEDS: CHLORHEXIDINE GLUCONATE 0.12% 480 ML MT ONE (10:52)
--- NOTE | 2024-06-26 10:57 | Operative Report ---
PG Post Operative Report Pre & Post Diagnosis Operation Date: 06/26/24 07:00 Pre-Op Diagnosis: Dental Abscess Post-Op Diagnosis: Dental Abscess I identified the patient and participated in the time-out.: Yes Procedure Operation Date: 06/26/24 07:00 Actual Procedures p Incision and Drainage Anterior Upper Jaw(Not Applicable) - Mayo Padron DMD s Extraction of #7,8,9,10,28 Teeth ,Debridement of Necrotic Bone of Upper Jaw - Mayo Padron DMD Surgeon Mayo Padron DMD Adult Ministries Director none Estimated Blood Loss 3 Findings Consistent with Post-Op Diagnosis acute facial abscess under nose Specimens I&D drainage maxillary vestibular area Drains none Anesthesia Type General Complications none Indications acute facial infection not responding to out patient therapy Description of Procedure Description of Procedure ICD 10 K12.2 and K04.6 CPT 10711 upper left facial abscess D7140 x 5 for simple extraction of carious teeth # 7,8,9,10,28 Actual Procedures p Incision and Drainage right swollen mucobuccal fold and right infraorbital space. Removal of Tooth #7,8,9,10,28 As a result of poor dental care there are many carious and fractured teeth resulting in the facial abscess This has resulted in the chronic infections, decayed and abscessed teeth She will need comprehensive dental care Once cleared for surgery general anesthesia was achieved, the eyes were protected by the anesthesia dept criteria. A time out was take for patient ID, antibiotics, equipment and position verification once all agreed the procedure began. Local anesthesia using Marcaine with a vasoconstrictor ( 1.8 ml per site) given into right inferior alveolar nerve and upper anterior area. A throat pack was placed after the oral cavity was irrigated with saline. Once a surgical level of anesthesia was obtained and the local anesthesia was given time for the blocks the surgery was started. I turned my attention to the infection which was located in the upper anterior mucobuccal fold. Incision and Drainage of anterior upper mucobuccal fold and right inferior orbital infection associated with teeth 7,8,9,10 CPT 16821 Using a 15 blade an incision in the swollen tissue anterior maxilla. Once the incision was made a lot of pus extruded from the site. Because of the chronic nature of the infection there was a lot of scaring that contributed to the firm expansion of the anterior vestibular space. This tissue was removed to debulk the area. A curved hemostat was carefully placed into the infected space along the lateral maxilla to insure adequate drainage. Some further drainage was now allowed to escape. I palpated the cheek and lateral nasal area and no further drainage was expressed. The area was irrigated with at least 100 ml of NS solution. I now turned my attention to remove teeth # 7,8,9,10 Upper # 7,8,9,10 D7140 x 4 The 4 infected teeth were visualized.were removed. I curetted the sockets to remove any necrotic bone and infected soft tissue At this time there was some brisk bleeding I used Surgicel to control the bleeding. The bone was trimmed, smoothed and the large flap was closed with a 3-0 chromic sutures. Lower # 28 D7210 x 1 Tooth # 28 was visualized. The dental forceps was used to remove the tooth. There was a large amount of granulation tissue on the apex the socket was curetted and irrigated. Completion of the case Once the I&D and extractions were completed, I inspected the sites to insure all bleeding was controlled. I removed the throat pack and suctioned the throat. Bilateral gauze pressure dressings were placed. All instrument and sponge count was correct. The patient was allowed to awake from the anesthesia. Once full awake the anesthesia tube was removed and the patient was taken to the recovery room with all vital sign stable. Upon full recovery she will be brought back to her room. The patient tolerated the surgery very well. I will follow the patient in my office upon D/C Rx and instructions will be given upon discharge. I attest to the content of the Intraoperative Record and any orders documented therein. Any exceptions are noted below.
--- NOTE | 2024-06-26 10:58 | Post Operative Brief Note ---
PG Immediate Post Op with CF Date of Surgery June 26, 2024 Pre & Post Diagnosis Operation Date: 06/26/24 07:00 Pre-Op Diagnosis: Dental Abscess Post-Op Diagnosis: Dental Abscess I identified the patient and participated in the time-out.: Yes Procedure Operation Date: 06/26/24 07:00 Actual Procedures p Incision and Drainage Anterior Upper Jaw(Not Applicable) - Mayo Padron DMD s Extraction of #7,8,9,10,28 Teeth ,Debridement of Necrotic Bone of Upper Jaw - Mayo Padron DMD Surgeon Mayo Padron DMD Phlebotomist none Estimated Blood Loss 3 Findings Consistent with Post-Op Diagnosis acute facial infection Specimens Specimen Description: Culture 1: Maxilla Vestibular Infection Anesthesia Type General Complications none Disposition Accompanied Patient To Recovery: Yes
[2024-06-26] MEDS: HYDROmorphone INJ 2 MG/ML SYR/VIAL IV PRN (11:14)
--- NOTE | 2024-06-26 13:16 | Anesthesiology Progress Note ---
Date of Service June 26, 2024 Anesthesia Post Procedure Vital Signs Vital Signs: Temp Pulse Pulse Resp BP Pulse Ox O2 Del Method 06/26/24 12:02 37.1 C 95 H 16 128/83 96 Room Air 06/26/24 11:40 37.2 C 87 16 124/74 97 Room Air 06/26/24 11:30 99 H 18 136/78 96 Room Air 06/26/24 11:20 89 14 118/74 97 Room Air 06/26/24 11:10 99 H 20 125/73 100 Room Air 06/26/24 11:04 36.2 C L 109 H 16 125/61 97 Room Air 06/26/24 08:49 37.1 C 86 16 119/71 98 Room Air 06/26/24 07:53 36.7 C 66 16 98/60 L 98 Room Air 06/25/24 20:07 36.9 C 82 18 83/43 L 97 Room Air 06/25/24 14:29 36.4 C L 68 16 95/58 L 97 Room Air Pain Intensity Right Face: Pain Intensity: 3 Mouth: Pain Intensity: 3 Transfer of Care Handoff Completed per policy Notes Mental Status: alert / awake / arousable and participated in evaluation Nausea / Vomiting: adequately controlled Pain: adequately controlled Airway Patency, RR, SpO2: stable & adequate BP & HR: stable & adequate Hydration State: stable & adequate Anesthetic Complications: no major complications apparent and Pt Satisfied with anesthetic care
[2024-06-26] MEDS: ERTAPENEM SODIUM 1,000 MG in SYRINGE 0 ML IV SCH (14:23)
[2024-06-26] MEDS: ONDANSETRON INJ 2 MG/ML 2 ML VIAL IV PRN (14:31)
[2024-06-26] MEDS: oxyCODONE HCL IR 5 MG TAB (IMMEDIATE RELEASE) PO PRN (16:04)
[2024-06-27 08:01] LABS: Basophils # (auto) 0.01 K/uL (0.00-0.20); Basophils % (auto) 0.1 %; Eosinophils # (auto) 0.01 K/uL (0.00-0.50); Eosinophils % (auto) 0.1 %; Hematocrit (blood only) 33.8 % (37.0-47.0); Hemoglobin 11.5 g/dl (12.0-16.0); Immature Granulocytes # (auto) 0.06 K/uL (0.01-0.20); Immature Granulocytes % (auto) 0.6 %; Lymphocytes # (auto) 1.28 K/uL (1.20-3.40); Lymphocytes % (auto) 11.9 %; Mean Corpuscular Hemoglobin 29.7 pg (25.0-34.0); Mean Corpuscular Volume 87.3 fL (80.0-100.0); Mean Platelet Volume 9.7 fL (9.4-12.4); Monocytes # (auto) 0.75 K/uL (0.11-0.59); Neutrophils # (auto) 8.67 K/uL (1.40-6.50); Neutrophils % (auto) 80.3 %; Platelet Count 246 K/uL (130-400); RDW Coefficient of Variation 11.6 % (11.5-14.5); Red Blood Count 3.87 M/uL (4.20-5.40); White Blood Count 10.78 K/ul (4.8-10.8)
[2024-06-27 08:16] LABS: BUN Creatinine Ratio 17.2 (10-20); Calcium 8.7 mg/dl (8.6-10.3); Creatinine Clr Calc Pharmacy 133.6 ml/min; Est GFR (African American) 146.8 ml/min; Est GFR (Non-African American) 126.7 ml/min
--- NOTE | 2024-06-27 09:06 | Discharge Summary ---
Discharge Summary Date of Service June 27, 2024 Principal Dx & Hospital Course #1 = Principal Diagnosis (1) Periapical abscess with facial involvement: (2) Facial cellulitis: (3) Bipolar 1 disorder: (4) Depression: (5) Attention deficit disorder (ADD): Plan This is a 24-year-old female with PMHx of bipolar disorder, ADHD, PTSD, substance abuse, vapes, depression with anxiety who presents to the hospital once more for complaints of worsening mouth pain and concern for dental abscess. Dental Abscesses Facial cellulitis Patient presenting with pain and facial swelling Repeat CT face noting progressed abscesses from the day prior Not septic at this time Blood cx x1 set pending Pt with penicillin allergy, was initially on IV Aztreonam and Flagyl---> IV ertapenem Oromaxfacial surgery consulted, appreciate recs -to OR on 06/26 -intraop culture pending Continue to monitor Continue other home meds as ordered Diet:full liquids at this time, advance as tolerated DVT prophylaxis: SCDs in periop setting Dispo: Home once medically stable Admission HPI Per Admitting Provider This is a 24-year-old female with PMHx of bipolar disorder, ADHD, PTSD, substance abuse, vapes, depression with anxiety who presents to the hospital for the third time in the past 2 days for complaints of worsening mouth pain and concern for dental abscess. She had been seen by dentist due to developement of dental pain on Wednesday, and had bitewing x-rays completed which showed multiple dental caries, was placed on oral clindamycin. Despite antibiotics, pt had worsening pain and therefore presented to the ER on 06/23 in the ER upon first visit, and then again this morning. She had received IV clindamycin yesterday and today in the ER. Pt denies any fever, chills or sweats. No issues with swallowing or saliva drainage. She has not eaten today due to pain. She is tolerating sips of water and gingerale at bedside. Her mother is here with her present at bedside, and supports the history. She states that the patient had an episode of a dental abscess in 2016 which spread to cellulitis and she became septic from such. She also notes the allergic reaction to penicillin of rash was noted when the patient was an with bright red rash over her face and neck. Dr. Padron has been consulted for possible abscess drainage, possible OR tomorrow morning. Medicine will admit the patient with IV antibiotics for monitoring. Social history: Patient currently vapes nicotine, has for at least 3 years, cessation encouraged at bedside. She denies any alcohol use. Patient admits to history of snorting cocaine use but has been sober for 3 years. Denies any IV drug abuse. Previously smoked marijuana occasionally. Patient lives with boyfriend. Sexually active. Does not use oral contraceptive. Updated Medication List Medication Instructions Recorded Confirmed Type dextroamphetamine-amphetamine 10 10 mg PO DIRECTED PRN HIGH 06/23/24 06/24/24 History mg tablet STRESS/CONCENTRATION DAYS dextroamphetamine-amphetamine ER 15 mg PO QAM 06/23/24 06/24/24 History 15 mg 24hr capsule,extend release Hospital Stay Data Consultations 06/24/24 15:18 Consult Oromaxillofacial Surgery Stat ED Decision to Admit Stat 06/24/24 15:29 Consult Oromaxillofacial Surgery Routine 06/26/24 14:48 Consult Infectious Diseases Routine Procedures Performed Operation Date: 06/26/24 07:00 Actual Procedures p Incision and Drainage Anterior Upper Jaw, Debridement of Necrotic Bone of Upper Jaw(Not Applicable) - Mayo Padron DMD s Extraction of #7,8,9,10,28 Teeth - Mayo Padron DMD Diagnostic Imagining Performed 06/24/24 12:56 CT facial bones w con Stat Pending Results Patient Have Any Pending Studies at Discharge: Yes Discharge Instructions Given to Patient (Per Discharging Provider) ADDITIONAL ACTIVITY RECOMMENDATIONS: * [place] teeth after every meal. It is very important to keep your mouth clean to prevent infection. * Starting tonight rinse with the Peridex as directed then 2 x a day * it is very important to keep well hydrated, this prevents fever and possible dry socket pain SPECIAL CARE INSTRUCTIONS: *It is not uncommon that between day 2-4 that your swelling will be at its worst this is very normal, do not be alarmed. * Keep ice on the side of your face for the next 24 to 36 hours. This will help keep the swelling down. * After 36 hours, apply heat (hot water bottle or heating pad) for the next two days, as often as possible. * Tomorrow start rinsing your mouth with 1/2 teaspoon salt in 8 ounces warm water. This rinse should be used every 4-6 hours. * You may experience slight nausea. To prevent this, never take your medication on an empty stomach. If nauseated, take small sips of sherry bladimir until you feel better; then you may start on applesauce and toast. * Some swelling is common. It should gradually decrease within 4-5 days. * A certain amount of bleeding is to be expected. It is often possible to control mild oozing by placing folded gauze over the area and biting down for 30 minutes. If you are unable to control excessive bleeding, call Dr Padron at [phone] * You may experience some discomfort for a few days. If pain or swelling increases, Call Dr Padron * Return to the office for a follow up check up on: Call office to set up follow up about 10-14 day after discharge * office address--[address] phone # [phone]
--- NOTE | 2024-06-27 11:55 | Hospitalist Progress Note ---
Date of Service June 27, 2024 Assessment & Plan (1) Periapical abscess with facial involvement: (2) Facial cellulitis: (3) Bipolar 1 disorder: (4) Depression: (5) Attention deficit disorder (ADD): Plan This is a 24-year-old female with PMHx of bipolar disorder, ADHD, PTSD, substance abuse, vapes, depression with anxiety who presents to the hospital once more for complaints of worsening mouth pain and concern for dental abscess. Dental Abscesses Facial cellulitis ?Osteomyelitis of Upper Jaw Patient presenting with pain and facial swelling Repeat CT face noting progressed abscesses from the day prior Not septic at this time Blood cx x1 set NGTD Pt with penicillin allergy, was initially on IV Aztreonam and Flagyl---> IV ertapenem to include gram positive covg Oromaxfacial surgery (OMFS) consulted, appreciate recs -to OR on 06/26/24, s/p Incision and Drainage Anterior Upper Jaw, Extraction of #7,8,9,10,28 Teeth, Debridement of Necrotic Bone of Upper Jaw -intraop culture no significant growth to date Given debridement of bone of upper jaw (?osteomyelitis) and pt's allergies, Infectious Disease consulted. -prelim recs via [email or web address] advise inserting PICC, final abx recs to follow. PICC ordered for placement on 07/07 Continue IV Ertapenem at this time Continue to monitor Continue other home meds as ordered Diet:full liquids at this time, advance as tolerated DVT prophylaxis: SCDs in periop setting Dispo: Home once medically stable Admission and Anticipated Discharge Date Admission Date: June 24, 2024 Subjective pt was seen today. States her face is sore, has been able to eat. Anxious for discharge. Later tearful that she might still need to stay to get antibiotics set up. Review of Systems Review of Systems: All systems reviewed & are unremarkable except as noted in Subjective Physical Exam Physical Exam: General: Alert, oriented. No acute distress Skin: improved erythema to right face Psych: Appropriate mood and affect Neuro: No gross deficits HEENT: NC/AT, improved swelling to right face CV: RRR, Normal s1, s2. No murmurs appreciated Resp: Breath sounds clear bilaterally, no increased effort of breathing. Abdomen:Soft, nontender Extremities: No edema in lower extremities bilaterally. Results & Data Results & Data Vital Signs (Past 12 Hours) Vital Signs Temp Pulse Resp BP Pulse Ox O2 Del Method 06/27/24 07:21 36.7 C 88 20 103/57 L 95 Room Air 06/26/24 23:59 36.4 C L 77 16 110/66 95 Room Air
--- NOTE | 2024-06-27 13:58 | Communication Note ---
Date of Service: June 27, 2024 Santos is a 24-year-old young lady with no known medical history who was admitted to [facility] because of dental abscess and facial cellulitis. Patient CT obtained on presentation showed right periapical abscess surrounding the maxillary incisor roots with associated soft tissue abscess as well as another periapical abscess on the left side. Another repeat CT scan of the face 2 days later showed multiple dental caries and periapical abscesses of the right maxillary medial and lateral incisors with a 1.7 x 1 cm soft tissue abscess which has increased in size since the CT 2 days ago. She was eventually taken for an incision and drainage on 06/26 with extraction of multiple teeth as well as debridement of necrotic bone of upper jaw. At this point, tissue culture is showing pinpoint growth (reintubated for further growth). ID team was contacted for further recommendations and to help guide antibiotic treatment. Impression: 1. Multiple odontogenic abscesses with presumed osteomyelitis of the upper jawmainly right periapical abscess of the right maxillary incisors 2. Facial cellulitis 3. Status post incision and drainage with debridement of necrotic bone of the upper jaw on 06/26 Recommendations: Given the presumed osteomyelitis of upper jaw, I would recommend treating with IV antibiotics via PICC line for a total duration of 6 weeks. Although she had penicillin and amoxicillin allergy manifested as facial rash, I would recommend challenging with a low-dose IV ceftriaxone (t250 mg once) and if tolerated, de-escalate IV ertapenem and to IV ceftriaxone 2 g daily and oral Flagyl 500 mg tab 3 times daily. I will keep the patient on my list and follow-up in the cultures until they finalize. Thank you for involving us in the care of Ms. santana. We will sign off for now.
--- NOTE | 2024-06-27 16:38 | Oral/Maxillofacial Progress Nt ---
Date of Service June 27, 2024 Assessment & Plan Admission and Anticipated Discharge Date Admission Date: June 24, 2024 Subjective Post Op infection evaluation 24 hours The infected area is resolving very well Swelling is almost gone and the tissue is close to being back to normal in size and texture. No further drainage is noted. Cultures were reviewed-but still pending Infection has responded very well to the antibiotics, extractions and the I and D. Given the allergy to Penicillin ID suggested PICC line and IV anabiotics for 6 weeks I requested that the patient continue with massage, heat and wound care. At this time the area is well healed and responded well to treatment. Once the PICC line placed can to discharged RTC as needed July 06 at 9:45 Results & Data Vital Signs (Past 12 Hours) Vital Signs Temp Pulse Resp BP Pulse Ox O2 Del Method 06/27/24 15:00 37.0 C 66 20 96/56 L 98 Room Air 06/27/24 07:21 36.7 C 88 20 103/57 L 95 Room Air PG Care Time/CCT Total # of Minutes Spent Total Time Spent with Patient: Total time spent is greater than 50% in coordination of care (as documented) at patient's floor/unit and/or counseling patient: Coding Level of Care Code None
[2024-06-28 07:28] LABS: Basophils # (auto) 0.05 K/uL (0.00-0.20); Basophils % (auto) 0.8 %; Eosinophils % (auto) 1.6 %; Hematocrit (blood only) 33.8 % (37.0-47.0); Hemoglobin 11.6 g/dl (12.0-16.0); Immature Granulocytes # (auto) 0.05 K/uL (0.01-0.20); Immature Granulocytes % (auto) 0.8 %; Lymphocytes # (auto) 2.02 K/uL (1.20-3.40); Lymphocytes % (auto) 31.4 %; Mean Corpuscular Hemoglobin 29.9 pg (25.0-34.0); Mean Corpuscular Hgb Conc 34.3 g/dL (32.0-36.0); Mean Corpuscular Volume 87.1 fL (80.0-100.0); Mean Platelet Volume 9.5 fL (9.4-12.4); Monocytes # (auto) 0.58 K/uL (0.11-0.59); Neutrophils # (auto) 3.63 K/uL (1.40-6.50); Neutrophils % (auto) 56.4 %; Platelet Count 243 K/uL (130-400); RDW Coefficient of Variation 11.5 % (11.5-14.5); RDW Standard Deviation 36.5 fL (36.4-46.3); Red Blood Count 3.88 M/uL (4.20-5.40); White Blood Count 6.43 K/ul (4.8-10.8)
[2024-06-28 07:46] VITALS: BP 105/56; RESP 16; TEMP 98.1; O2SAT 96
[2024-06-28 07:55] LABS: BUN Creatinine Ratio 17.6 (10-20); Calcium 8.8 mg/dl (8.6-10.3); Creatinine Clr Calc Pharmacy 125.7 ml/min; Est GFR (African American) 143.9 ml/min; Est GFR (Non-African American) 124.2 ml/min; Potassium 3.8 mmol/L (3.5-5.1)
[2024-06-28] MEDS ORDERED: methylPREDNISolone 125 MG/2 ML VIAL IV PRN ×2 (07:55→08:24)
[2024-06-28] MEDS ORDERED: diphenhydrAMINE 50 MG/ML VIAL IV PRN ×3 (07:55→08:13)
[2024-06-28] MEDS ORDERED: EPINEPHrine INJ 1 MG/ML AMP IM PRN ×2 (07:55→08:25)
[2024-06-28] MEDS: ANAPHYLAXIS KIT ONE (08:21)
[2024-06-28] MEDS: CEFTRIAXONE SODIUM IV ONE (08:21)
[2024-06-28] MEDS: DEXTROSE 5% IV ONE (08:21)
[2024-06-28] MEDS: DEXTROSE 5% IV STA (08:27)
[2024-06-28] MEDS ORDERED: methylPREDNISolone 125 MG in SYRINGE 0 ML IV PRN (08:27)
[2024-06-28] MEDS: CEFTRIAXONE SODIUM IV STA (08:27)
[2024-06-28] MEDS ORDERED: DEXTROSE 5% IV ONE (08:56)
[2024-06-28] MEDS ORDERED: CEFTRIAXONE SODIUM IV ONE (08:56)
[2024-06-28] MEDS: cefTRIAXone SODIUM 1,000 MG/50 ML BAG IV ONE (09:13)
[2024-06-28] MEDS ORDERED: cefTRIAXone SODIUM 1,000 MG in DEXTROSE 5% 100 ML IV ONE (09:56)
--- NOTE | 2024-06-28 12:01 | Discharge Summary ---
Discharge Summary Date of Service June 28, 2024 Principal Dx & Hospital Course #1 = Principal Diagnosis (1) Periapical abscess with facial involvement: (2) Facial cellulitis: (3) Bipolar 1 disorder: (4) Depression: (5) Attention deficit disorder (ADD): Plan Ms. Latham is a 24-year-old female with PMHx of bipolar disorder, ADHD, PTSD, substance abuse, vapes, depression with anxiety who was admitted for multiple odontologic abscesses. Imaging with concern fo osteomyelitis of jaw. Patient underwent debridement/I&D with Dr Pdaron on 06/26. ID reviewed patient and noted history of pencillin allergy. IV CTX was administered in hospital without reaction. Patient discharged with PICC line for daily CTX administration at [facility] for 6 weeks as well as po flagyl. #Multiple odontologic abscesses s/p extraction 06/26 #Facial cellulitis #Osteomyelitis of Upper Jaw Patient presenting with pain and facial swelling; Repeat CT face noting progressed abscesses from the day prior Blood cx x1 set NGTD, Wound Culture NGTD c/f Pencillin allergy: on ertapenem -Trial of 1g CTX without reaction, additional 1g administered Infectious disease on consult -Continue CTX 2g IV qd for 6 weeks (EOT 08/07/2024) Oromaxfacial surgery (OMFS) consulted, appreciate recs -s/p OR on 06/26/24, s/p Incision and Drainage Anterior Upper Jaw, Extraction of #7,8,9,10,28 Teeth, Debridement of Necrotic Bone of Upper Jaw PICC placed 06/28 Patient to give IV infusion and care at [facility] upon discharge Continue other home meds as ordered Notes For Next Care Provider Medication Changes From Visit Flagyl 500mg TID EOT 08/07/2023 Ceftriaxone 2g IV at [facility] 08/07/2024 Admission HPI Per Admitting Provider This is a 24-year-old female with PMHx of bipolar disorder, ADHD, PTSD, substance abuse, vapes, depression with anxiety who presents to the hospital for the third time in the past 2 days for complaints of worsening mouth pain and concern for dental abscess. She had been seen by dentist due to developement of dental pain on Wednesday, and had bitewing x-rays completed which showed multiple dental caries, was placed on oral clindamycin. Despite antibiotics, pt had worsening pain and therefore presented to the ER on 06/23 in the ER upon first visit, and then again this morning. She had received IV clindamycin yesterday and today in the ER. Pt denies any fever, chills or sweats. No issues with swallowing or saliva drainage. She has not eaten today due to pain. She is tolerating sips of water and gingerale at bedside. Her mother is here with her present at bedside, and supports the history. She states that the patient had an episode of a dental abscess in 2017 which spread to cellulitis and she became septic from such. She also notes the allergic reaction to penicillin of rash was noted when the patient was an infant with bright red rash over her face and neck. Dr. Padron has been consulted for possible abscess drainage, possible OR tomorrow morning. Medicine will admit the patient with IV antibiotics for monitoring. Social history: Patient currently vapes nicotine, has for at least 3 years, cessation encouraged at bedside. She denies any alcohol use. Patient admits to history of snorting cocaine use but has been sober for 3 years. Denies any IV drug abuse. Previously smoked marijuana occasionally. Patient lives with boyfriend. Sexually active. Does not use oral contraceptive. Admission Exam Per Admitting Provider General: awake, alert, no apparent distress, white female Head: Normocephalic, atraumatic ENT: PERRL, EOMI, no pharyngeal exudate, mucous membranes moist, + front left central incisor #8 tooth with small chip, left bottom cuspid #22 tooth darkened with dental caries, right upper cuspid #6 darkened, abscess noted on right maxilla above gumline bright red, fluctuant, upper lip is swollen, cheek appears swollen on the right, light red erythema extending up to the bottom of the right eye not involving the orbit. Chest: Clear to auscultation, on room air, no adventitious breath sounds Cardiac: Regular rate and rhythm, no murmur, no JVD, normal peripheral pulses, good capillary refill Abdominal: NABS x 4 quadrants, soft, nondistended, nontender to palpation, no rebound or guarding Extremities: Normal inspection, no peripheral edema or erythema, calfs nontender to palpation Psych: Normal mood and affect Neuro: AAO x 3, strength intact bilaterally and rated 5/5, no motor deficits, speech is clear, no peripheral sensory deficits Discharge Exam Constitutional WD/WN, vitals as above Respiratory normal respiratory effort, lungs clear to auscultation Cardiovascular RRR, no murmur, no edema Musculoskeletal no cyanosis or clubbing, extremities motor strength 5/5 Updated Medication List Medication Instructions Recorded Confirmed Type dextroamphetamine-amphetamine 10 10 mg PO DIRECTED PRN HIGH 06/23/24 06/24/24 History mg tablet STRESS/CONCENTRATION DAYS dextroamphetamine-amphetamine ER 15 mg PO QAM 06/23/24 06/24/24 History 15 mg 24hr capsule,extend release metronidazole 500 mg tablet 500 mg PO Q8H 42 days #126 tabs 06/28/24 Rx Hospital Stay Data Consultations 06/24/24 15:18 Consult Oromaxillofacial Surgery Stat ED Decision to Admit Stat 06/24/24 15:29 Consult Oromaxillofacial Surgery Routine 06/26/24 14:48 Consult Infectious Diseases Routine Procedures Performed Operation Date: 06/26/24 07:00 Actual Procedures p Incision and Drainage Anterior Upper Jaw, Debridement of Necrotic Bone of Upper Jaw(Not Applicable) - Mayo Padron DMD s Extraction of #7,8,9,10,28 Teeth - Mayo Padron DMD Diagnostic Imagining Performed 06/24/24 12:56 CT facial bones w con Stat Pending Results Patient Have Any Pending Studies at Discharge: Yes Discharge Instructions Given to Patient (Per Discharging Provider) You were admitted for mouth pain and noted to have multiple dental abscesses with presume osteomyelitis (bone infection) of the right upper jaw. You underwent surgery on 06/26. You will need to complete 6 weeks of IV antibiotics and oral antibiotics. Please chicken picker the following: Metronidazole 500mg three times a day until course complete Please go to the [facility] for daily infusion of Ceftriaxone 2g daily End of Treatment 08/07/2024 ADDITIONAL ACTIVITY RECOMMENDATIONS: * [place] teeth after every meal. It is very important to keep your mouth clean to prevent infection. * Starting tonight rinse with the Peridex as directed then 2 x a day * it is very important to keep well hydrated, this prevents fever and possible dry socket pain SPECIAL CARE INSTRUCTIONS: *It is not uncommon that between day 2-4 that your swelling will be at its worst this is very normal, do not be alarmed. * Keep ice on the side of your face for the next 24 to 36 hours. This will help keep the swelling down. * After 36 hours, apply heat (hot water bottle or heating pad) for the next two days, as often as possible. * Tomorrow start rinsing your mouth with 1/2 teaspoon salt in 8 ounces warm water. This rinse should be used every 4-6 hours. * You may experience slight nausea. To prevent this, never take your medication on an empty stomach. If nauseated, take small sips of sherry bladimir until you feel better; then you may start on applesauce and toast. * Some swelling is common. It should gradually decrease within 4-5 days. * A certain amount of bleeding is to be expected. It is often possible to control mild oozing by placing folded gauze over the area and biting down for 30 minutes. If you are unable to control excessive bleeding, call Dr Padron at [phone] * You may experience some discomfort for a few days. If pain or swelling increases, Call Dr Padron * Return to the office for a follow up check up on: July 06 at 9:45 * office address--[facility] [address] [place]. phone # [phone] Total Time Total Time Spent Total Time Spent (In Minutes): 45
[2024-06-28] MEDS: cefTRIAXone SODIUM 1,000 MG/50 ML BAG IV STA (14:00)
[2024-06-28] MEDS: metroNIDAZOLE 500 MG TAB PO SCH (14:01)
[2024-06-28 15:26] VITALS: PULSE 86
== END 2024-06-28 16:03 | disposition home or self-care (01) | DRG 137 ==
LOC: ED 12:29 → 3N 15:29 → SUATTDRO 15:29 → 3N 17:10
DX: F19.10 Other psychoactive substance abuse, uncomplicated; L03.211 Cellulitis of face; Z88.1 Allergy status to other antibiotic agents; K21.9 Gastro-esophageal reflux disease without esophagitis; F17.200 Nicotine dependence, unspecified, uncomplicated; K12.2 Cellulitis and abscess of mouth; F31.9 Bipolar disorder, unspecified; F90.9 Attention-deficit hyperactivity disorder, unspecified type; M86.8X8 Other osteomyelitis, other site; Z88.0 Allergy status to penicillin; U07.0 Vaping-related disorder; K04.7 Periapical abscess without sinus